=== PATIENT | female | born 1980 | race Caucasian/White ===

== ENCOUNTER → 2016-07-12 | Outpatient (CLI) | payer BC, OTHER | LOC: MW.CHGS 14:02 | PROVIDERS: ATTEND Surgery | DX: N63 Unspecified lump in breast (principal) | CPT/HCPCS: 36415; 85027; 85610; 85730 ==

== ENCOUNTER 2017-03-27 00:44 | Emergency (ER) | payer BC ==
[2017-03-27 00:53] VITALS: BP 153/99
[2017-03-27] MEDS ORDERED: Aspirin 81 MG Tab.Chew PO ONE (00:57)
[2017-03-27] MEDS ORDERED: Nitroglycerin 2% Oint 1 GM UD Packet TOP SCH (01:00)
--- NOTE | 2017-03-27 01:12 | EDM.PDOC ---
ED HPI GENERAL MEDICAL PROBLEM - General Chief Complaint: Chest Pain Stated Complaint: CHEST PAIN, BACK PAIN Time Seen by Provider: 03/27/17 00:50 Source of Information: Reports: Patient - History of Present Illness INITIAL COMMENTS - FREE TEXT/NARRATIVE: She states that she had onset of central chest pain x about three hours ago. she has been coughing a little more since she quit smoking about a month ago. Middle Chest Pain Score (Numeric/FACES): 5 Upper Back Pain Score (Numeric/FACES): 5 - Related Data Allergies Allergy/AdvReac Type Severity Reaction Status Date / Time No Known Allergies Allergy Verified 11/22/15 15:14 Home Meds: Home Meds Venlafaxine [Effexor] 150 mg PO DAILY 05/06/14 [History] Lisinopril [Lisinopril] 10 mg PO DAILY 03/27/17 [History] Sertraline [Zoloft] 50 mg PO DAILY 03/27/17 [History] Past Medical History HEENT History: Reports: None Cardiovascular History: Reports: Hypertension Respiratory History: Reports: None Gastrointestinal History: Reports: None Genitourinary History: Reports: None [employer] History: Reports: None Musculoskeletal History: Reports: None Neurological History: Reports: None Psychiatric History: Reports: Addiction, Depression, Other (See Below) Other Psychiatric History: ETOH abuse Endocrine/Metabolic History: Reports: None Hematologic History: Reports: None Immunologic History: Reports: None Oncologic (Cancer) History: Reports: None Dermatologic History: Reports: None - Infectious Disease History Infectious Disease History: Reports: Chicken Pox - Past Surgical History Head Surgeries/Procedures: Reports: None Social & Family History - Family History Family Medical History: Noncontributory - Tobacco Use Smoking Status *Q: Former Smoker Years of Tobacco use: 15 Packs/Tins Daily: 0.5 Used Tobacco, but Quit: Yes Month Tobacco Last Used: 02/2017 - Caffeine Use Caffeine Use: Reports: Soda - Alcohol Use Days Per Week of Alcohol Use: 0 Number of Drinks Per Day: 4 Total Drinks Per Week: 0 - Recreational Drug Use Recreational Drug Use: No ED ROS GENERAL - Review of Systems Review Of Systems: See Below Constitutional: Denies: Fever Respiratory: Reports: Cough, Sputum Cardiovascular: Reports: Chest Pain GI/Abdominal: Denies: Abdominal Pain, Black Stool, Bloody Stool, Hematemesis, Hematochezia ED EXAM, GENERAL - Physical Exam Exam: See Below Free Text/Narrative:: alert normal mentation lungs CTA heart RRR without m abdomen non tender no ankle edema EKG: NSR ; small q waves II III AVF and V4 through V 6 Course - Vital Signs Last Recorded V/S: Last Vital Signs Temp 97.4 F 03/27/17 00:49 Pulse 104 H 03/27/17 00:49 Resp 20 03/27/17 00:49 BP 153/99 H 03/27/17 00:49 Pulse Ox 98 03/27/17 00:49 - Orders/Labs/Meds Orders: Active Orders 24 hr Category Date Time Status Patient Status [ADT] Routine ADT 03/27/17 02:59 Active Cardiac Monitoring [RC] . DIRECTED Care 03/27/17 00:58 Active EKG 12 Lead [EKG Documentation Completion] [RC] STAT Care 03/27/17 00:55 Active Oxygen Therapy [RC] PRN Care 03/27/17 02:59 Active VTE/DVT Education [RC] PER UNIT ROUTINE Care 03/27/17 02:59 Active Vital Signs [RC] Q4H Care 03/27/17 02:59 Active Regular Diet [DIET] Diet 03/27/17 Breakfast Active Chest 1V Frontal [CR] Stat Exams 03/27/17 00:55 Taken LIPID PANEL [CHEM] Stat Lab 03/27/17 05:00 Ordered TROPONIN I [CHEM] Q6H Lab 03/27/17 05:00 Ordered Acetaminophen [Tylenol] Med 03/27/17 02:59 Active 650 mg PO Q4H PRN Lisinopril [Prinivil] Med 03/27/17 09:00 Active 10 mg PO DAILY Morphine Med 03/27/17 02:59 Active 2 mg IVPUSH Q2H PRN Nitroglycerin [Nitro-Bid 2%] Med 03/27/17 01:00 Active 1 gm TOP Q6H Sertraline [Zoloft] Med 03/27/17 09:00 Active 50 mg PO DAILY Sodium Chloride 0.9% [Saline Flush] Med 03/27/17 02:59 Active 10 ml FLUSH ASDIRECTED PRN Sodium Chloride 0.9% [Saline Flush] Med 03/27/17 02:59 Active 2.5 ml FLUSH ASDIRECTED PRN Temazepam [Restoril] Med 03/27/17 02:59 Active 15 mg PO BEDTIME PRN Saline Lock Insert [OM.PC] Routine Oth 03/27/17 02:59 Ordered Resuscitation Status Routine Resus Stat 03/27/17 02:59 Ordered Medication Orders Acetaminophen (Tylenol) 650 mg PO Q4H PRN PRN Reason: Pain (Mild 1-3)/fever Lisinopril (Prinivil) 10 mg PO DAILY BRUCE Morphine Sulfate (Morphine) 2 mg IVPUSH Q2H PRN PRN Reason: Pain (severe 7-10) Stop: 03/28/17 03:01 Nitroglycerin (Nitro-Bid 2%) 1 gm TOP Q6H BRUCE Last Admin: 03/27/17 01:07 Dose: 1 gm Sertraline HCl (Zoloft) 50 mg PO DAILY BRUCE Sodium Chloride (Saline Flush) 10 ml FLUSH ASDIRECTED PRN PRN Reason: Keep Vein Open Sodium Chloride (Saline Flush) 2.5 ml FLUSH ASDIRECTED PRN PRN Reason: Keep Vein Open Temazepam (Restoril) 15 mg PO BEDTIME PRN PRN Reason: Sleep Labs: Laboratory Tests 03/27/17 03/27/17 03/27/17 Range/Units 01:00 01:00 01:00 WBC 11.67 H (4.0-11.0) K/uL RBC 4.73 (4.30-5.90) M/uL Hgb 13.2 (12.0-16.0) g/dL Hct 39.1 (36.0-46.0) % MCV 82.7 (80.0-98.0) fL MCH 27.9 (27.0-32.0) pg MCHC 33.8 (31.0-37.0) g/dL RDW Std Deviation 40.0 (28.0-62.0) fl RDW Coeff of Roe 14 (11.0-15.0) % Plt Count 324 (150-400) K/uL MPV 10.00 (7.40-12.00) fL Neut % (Auto) 57.9 (48.0-80.0) % Lymph % (Auto) 31.0 (16.0-40.0) % [place] % (Auto) 8.4 (0.0-15.0) % Eos % (Auto) 2.4 (0.0-7.0) % Baso % (Auto) 0.3 (0.0-1.5) % Neut # (Auto) 6.8 H (1.4-5.7) K/uL Lymph # (Auto) 3.6 H (0.6-2.4) K/uL [place] # (Auto) 1.0 H (0.0-0.8) K/uL Eos # (Auto) 0.3 (0.0-0.7) K/uL Baso # (Auto) 0.0 (0.0-0.1) K/uL Sodium 138 (136-146) mmol/L Potassium 3.9 (3.5-5.1) mmol/L Chloride 106 (98-110) mmol/L Carbon Dioxide 24 (21-31) mmol/L BUN 12 (6.0-23.0) mg/dL Creatinine 0.7 (0.6-1.5) mg/dL Est Cr Clr Drug Dosing 103.01 mL/min Estimated GFR (MDRD) > 60.0 ml/min Glucose 116 H (60-110) mg/dL Calcium 9.3 (8.8-10.8) mg/dL Magnesium 1.6 (1.5-2.3) mEq/L Total Bilirubin 0.2 (0.1-1.5) mg/dL AST 17 (5-40) IU/L ALT 24 (8-54) IU/L Alkaline Phosphatase 105 (40-150) Troponin I < 0.10 (0.0-0.29) NG/ML Total Protein 7.5 (6.0-8.0) g/dL Albumin 4.0 (3.5-5.0) g/dL Globulin 3.5 (2.0-3.5) g/dL Albumin/Globulin Ratio 1.1 L (1.3-2.8) HCG, Qual NEGATIVE (NEG) Meds: Medications Generic Name Dose Route Start Last Admin Trade Name Freq PRN Reason Stop Dose Admin Acetaminophen 650 mg 03/27/17 02:59 Tylenol PO Q4H PRN Pain (Mild 1-3)/fever Lisinopril 10 mg 03/27/17 09:00 Prinivil PO DAILY BRUCE Morphine Sulfate 2 mg 03/27/17 02:59 Morphine IVPUSH 1113/17 03:01 Q2H PRN Pain (severe 7-10) Nitroglycerin 1 gm 03/27/17 01:00 03/27/17 01:07 Nitro-Bid 2% TOP 1 gm Q6H BRUCE Administration Sertraline HCl 50 mg 03/27/17 09:00 Zoloft PO DAILY BRUCE Sodium Chloride 10 ml 03/27/17 02:59 Saline Flush FLUSH ASDIRECTED PRN Keep Vein Open Sodium Chloride 2.5 ml 03/27/17 02:59 Saline Flush FLUSH ASDIRECTED PRN Keep Vein Open Temazepam 15 mg 03/27/17 02:59 Restoril PO BEDTIME PRN Sleep Discontinued Medications Generic Name Dose Route Start Last Admin Trade Name Freq PRN Reason Stop Dose Admin Aspirin 324 mg 03/27/17 00:57 03/27/17 01:07 Aspirin PO 03/27/17 00:58 324 mg ONETIME ONE Administration - Re-Assessments/Exams Free Text/Narrative Re-Assessment/Exam: 03/27/17 02:58 i reviewed findings with patient and recommend observation; chest pain is atypical and likely non cardiac but 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 Jose eisenberg MD Free Text/Narrative Re-Assessment/Exam: 03/27/17 03:07 I recommended observation in the hospital but she insists on discharge understanding the risk of heart disease although I advised that this is likely musculoskeletal pain. She voices understanding. Departure - Departure Time of Disposition: 02:58 Disposition: Home, Self-Care 01 Condition: Good Clinical Impression: Chest pain Referrals: PCP,None [Primary Care Provider] - Forms: ED Department Discharge Additional Instructions: tylenol as needed for pain recheck with your doctor within one week. - My Orders Last 24 Hours: My Active Orders 03/27/17 00:55 EKG 12 Lead [EKG Documentation Completion] [RC] STAT Chest 1V Frontal [CR] Stat 03/27/17 00:58 Cardiac Monitoring [RC] . DIRECTED 03/27/17 01:00 Nitroglycerin [Nitro-Bid 2%] 1 gm TOP Q6H 03/27/17 02:59 Patient Status [ADT] Routine Oxygen Therapy [RC] PRN VTE/DVT Education [RC] PER UNIT ROUTINE Vital Signs [RC] Q4H Acetaminophen [Tylenol] 650 mg PO Q4H PRN Morphine 2 mg IVPUSH Q2H PRN Sodium Chloride 0.9% [Saline Flush] 10 ml FLUSH ASDIRECTED PRN Sodium Chloride 0.9% [Saline Flush] 2.5 ml FLUSH ASDIRECTED PRN Temazepam [Restoril] 15 mg PO BEDTIME PRN Saline Lock Insert [OM.PC] Routine Resuscitation Status Routine 03/27/17 05:00 LIPID PANEL [CHEM] Stat TROPONIN I [CHEM] Q6H 03/27/17 09:00 Lisinopril [Prinivil] 10 mg PO DAILY Sertraline [Zoloft] 50 mg PO DAILY 03/27/17 Breakfast Regular Diet [DIET] - Assessment/Plan Last 24 Hours: My Active Orders 03/27/17 00:55 EKG 12 Lead [EKG Documentation Completion] [RC] STAT Chest 1V Frontal [CR] Stat 03/27/17 00:58 Cardiac Monitoring [RC] . DIRECTED 03/27/17 01:00 Nitroglycerin [Nitro-Bid 2%] 1 gm TOP Q6H 03/27/17 02:59 Patient Status [ADT] Routine Oxygen Therapy [RC] PRN VTE/DVT Education [RC] PER UNIT ROUTINE Vital Signs [RC] Q4H Acetaminophen [Tylenol] 650 mg PO Q4H PRN Morphine 2 mg IVPUSH Q2H PRN Sodium Chloride 0.9% [Saline Flush] 10 ml FLUSH ASDIRECTED PRN Sodium Chloride 0.9% [Saline Flush] 2.5 ml FLUSH ASDIRECTED PRN Temazepam [Restoril] 15 mg PO BEDTIME PRN Saline Lock Insert [OM.PC] Routine Resuscitation Status Routine 03/27/17 05:00 LIPID PANEL [CHEM] Stat TROPONIN I [CHEM] Q6H 03/27/17 09:00 Lisinopril [Prinivil] 10 mg PO DAILY Sertraline [Zoloft] 50 mg PO DAILY 03/27/17 Breakfast Regular Diet [DIET]
[2017-03-27 01:25] LABS: CHLORIDE,CL 106 mmol/L (98-110); SODIUM,NA 138 mmol/L (136-146)
[2017-03-27] MEDS ORDERED: Morphine 10 MG/ML Syringe IVPUSH PRN (02:59)
[2017-03-27] MEDS ORDERED: Sodium Chloride 0.9% 2.5 ML Syringe FLUSH PRN (02:59)
[2017-03-27] MEDS ORDERED: Temazepam 15 MG Cap PO PRN (02:59)
[2017-03-27] MEDS ORDERED: Acetaminophen 325 MG Tab PO PRN (02:59)
[2017-03-27] MEDS ORDERED: Sodium Chloride 0.9% 10 ML Syringe FLUSH PRN (02:59)
[2017-03-27] MEDS ORDERED: Lisinopril 10 MG Tab PO SCH (09:00)
[2017-03-27] MEDS ORDERED: Sertraline 50 MG Tab PO SCH (09:00)
--- NOTE | 2017-03-28 14:20 | CR ---
EXAM DATE: 03/27/17 PATIENT'S AGE: 36 Patient: OKSANA CERRATO Facility: [place], [place] Site . Site : 1980 Study: XRay Chest [id number] 2:19:04 AM Ordering Physician: Alfonso Garcia Final Report: INDICATIONS: Chest pain. TECHNIQUE: Chest 1 view. COMPARISON: Chest radiograph May 06, 2014. FINDINGS: Lungs are suboptimally inflated but grossly clear. No evidence of pneumothorax or pleural effusion. Cardiac and mediastinal contours are within normal limits. Upper abdomen and osseous structures show no acute abnormality. IMPRESSION: No evidence of acute cardiopulmonary disease. Dictated by Jewel Singleton MD @ 03/27/2017 2:30:35 AM Dictated by: Jewel Singleton MD @ 03/27/2017 02:30:41 (Electronic Signature) Report Signed by Proxy. [facility] CENTERCorrina
== END 2017-03-27 03:30 | disposition home or self-care (01) ==
LOC: MW.ED 00:44
DX: R07.89 Other chest pain (principal); I10 Essential (primary) hypertension; Z79.899 Other long term (current) drug therapy; Z87.891 Personal history of nicotine dependence
CPT/HCPCS: 71010; 80053; 83735; 84484; 84703; 85025; 93005; 99285; A9270; 99283

== ENCOUNTER 2017-05-29 09:20 | Emergency (ER) | payer BC ==
[2017-05-29] MEDS ORDERED: Ondansetron 4 MG/2 ML SDV IVPUSH ONE (09:42)
[2017-05-29] MEDS ORDERED: Pantoprazole 40 MG Vial IVPUSH ONE (09:42)
[2017-05-29] MEDS ORDERED: Sodium Chloride 0.9% 1,000 ML IV ONE (09:42)
[2017-05-29 10:43] LABS: CHLORIDE,CL 85 mmol/L (98-110); SODIUM,NA 134 mmol/L (136-146)
[2017-05-29] MEDS ORDERED: NS + KCl 20mEq/L 1,000 ML IV SCH (12:00)
[2017-05-29] MEDS ORDERED: Promethazine 25 MG/ML SDV IM ONE (12:07)
--- NOTE | 2017-05-29 12:07 | EDM.PDOC ---
ED HPI GENERAL MEDICAL PROBLEM - General Chief Complaint: Drug or Alcohol Abuse Stated Complaint: VOMITTING, MUSCLE CRAMPS Time Seen by Provider: 05/29/17 12:07 Source of Information: Reports: Patient - History of Present Illness INITIAL COMMENTS - FREE TEXT/NARRATIVE: HISTORY AND PHYSICAL: History of present illness: [Patient with history of alcohol use abuse dependence was drinking over Tuesday night into Tuesday morning she drank several 40 ounce malt beverages along with 6-8 16 ounce beers and 5-8 shots of whiskey, she presents with vomiting since no fever chills sweats no chest pain shortness breath headache dizziness or palpitation no urine symptoms ] Review of systems: As per history of present illness and below otherwise all systems reviewed and negative. Past medical history: As per history of present illness and as reviewed below otherwise noncontributory. Surgical history: As per history of present illness and as reviewed below otherwise noncontributory. Social history: No reported history of drug or alcohol abuse. Family history: As per history of present illness and as reviewed below otherwise noncontributory. Physical exam: HEENT: Atraumatic, normocephalic, pupils reactive, negative for conjunctival pallor or scleral icterus, mucous membranes moist, throat clear, neck supple, nontender, trachea midline. Lungs: Clear to auscultation, breath sounds equal bilaterally, chest nontender. Heart: S1S2, regular, negative for clicks, rubs, or JVD. Abdomen: Soft, nondistended, nontender. Negative for masses or hepatosplenomegaly. Negative for costovertebral tenderness. Pelvis: Stable nontender. Genitourinary: Deferred. Rectal: Deferred. Extremities: Atraumatic, negative for cords or calf pain. Neurovascular unremarkable. Neuro: Awake, alert, oriented. Cranial nerves II through XII unremarkable. Cerebellum unremarkable. Motor and sensory unremarkable throughout. Exam nonfocal. Diagnostics: [CBC CMP alcohol hCG UA lactic acid CPK, CK-MB ] Abdomen flat and upright EKG Therapeutics: [1 L normal saline bolus Zofran 8 mg IV Protonic Aissatou milligrams IV Normal saline with 20 mEq of potassium Phenergan 25 mg IM ]Patient was considered for admission due to hypokalemia and dehydration she refuses and prefers to sign out AGAINST MEDICAL ADVICE, she is described possibility of permanent morbidity or mortality due to electrolyte abnormalities etc. she accepts these risks and voices understanding Provide Zofran protonic some potassium replacement she is extended the opportunity to return if symptoms persist or worsen Impression: [Gastritis vomiting-controlled Hypokalemia] Definitive disposition and diagnosis as appropriate pending reevaluation and review of above. - Related Data Allergies Allergy/AdvReac Type Severity Reaction Status Date / Time No Known Allergies Allergy Verified 05/29/17 09:28 Home Meds: Home Meds Venlafaxine [Effexor] 150 mg PO DAILY 05/06/14 [History] Lisinopril [Lisinopril] 10 mg PO DAILY 03/27/17 [History] Sertraline [Zoloft] 50 mg PO DAILY 03/27/17 [History] Past Medical History HEENT History: Reports: None Cardiovascular History: Reports: Hypertension Respiratory History: Reports: None Gastrointestinal History: Reports: None Genitourinary History: Reports: None [employer]IL [employer] History: Reports: None Musculoskeletal History: Reports: None Neurological History: Reports: None Psychiatric History: Reports: Addiction, Depression, Other (See Below) Other Psychiatric History: ETOH abuse Endocrine/Metabolic History: Reports: None Hematologic History: Reports: None Immunologic History: Reports: None Oncologic (Cancer) History: Reports: None Dermatologic History: Reports: None - Infectious Disease History Infectious Disease History: Reports: Chicken Pox - Past Surgical History Head Surgeries/Procedures: Reports: None Social & Family History - Family History Family Medical History: Noncontributory - Tobacco Use Smoking Status *Q: Never Smoker Years of Tobacco use: 15 Packs/Tins Daily: 0.5 Used Tobacco, but Quit: Yes Month Tobacco Last Used: 02/2017 - Caffeine Use Caffeine Use: Reports: Soda - Alcohol Use Days Per Week of Alcohol Use: 0 Number of Drinks Per Day: 4 Total Drinks Per Week: 0 - Recreational Drug Use Recreational Drug Use: No ED ROS GENERAL - Review of Systems Review Of Systems: ROS reveals no pertinent complaints other than HPI. ED EXAM, GENERAL - Physical Exam Exam: See Below Course - Vital Signs Last Recorded V/S: Last Vital Signs Temp 96.5 F 05/29/17 09:29 Pulse 101 H 05/29/17 09:29 Resp 20 05/29/17 09:29 BP 144/96 H 05/29/17 09:29 Pulse Ox 97 05/29/17 09:29 - Orders/Labs/Meds Orders: Active Orders 24 hr Category Date Time Status EKG Documentation Completion [RC] STAT Care 05/29/17 11:58 Active Abdomen 2V AP Flat Upright [CR] Stat Exams 05/29/17 10:08 Taken CULTURE BLOOD [BC] Stat Lab 05/29/17 11:47 Received CULTURE BLOOD [BC] Stat Lab 05/29/17 11:58 Received NS + KCl 20mEq/L [Normal Saline with 20 mEq KCl] 1,000 Med 05/29/17 12:00 Active ml IV ASDIRECTED Blood Culture x2 Reflex Set [OM.PC] Stat Oth 05/29/17 11:37 Ordered Medication Orders Potassium Chloride/Sodium Chloride (Normal Saline With 20 Meq Kcl) 1,000 mls @ 125 mls/hr IV ASDIRECTED BRUCE Last Admin: 05/29/17 12:12 Dose: 125 mls/hr Labs: Laboratory Tests 05/29/17 05/29/17 05/29/17 Range/Units 10:07 10:07 10:07 WBC 14.49 H (4.0-11.0) K/uL RBC 5.33 (4.30-5.90) M/uL Hgb 15.1 (12.0-16.0) g/dL Hct 43.4 (36.0-46.0) % MCV 81.4 (80.0-98.0) fL MCH 28.3 (27.0-32.0) pg MCHC 34.8 (31.0-37.0) g/dL RDW Std Deviation 40.8 (28.0-62.0) fl RDW Coeff of Roe 14 (11.0-15.0) % Plt Count 351 (150-400) K/uL MPV 9.80 (7.40-12.00) fL Neut % (Auto) 85.4 H (48.0-80.0) % Lymph % (Auto) 8.2 L (16.0-40.0) % [place] % (Auto) 6.3 (0.0-15.0) % Eos % (Auto) 0.0 (0.0-7.0) % Baso % (Auto) 0.1 (0.0-1.5) % Neut # (Auto) 12.4 H (1.4-5.7) K/uL Lymph # (Auto) 1.2 (0.6-2.4) K/uL [place] # (Auto) 0.9 H (0.0-0.8) K/uL Eos # (Auto) 0.0 (0.0-0.7) K/uL Baso # (Auto) 0.0 (0.0-0.1) K/uL Nucleated RBC % 0.0 /100WBC Nucleated RBCs # 0 K/uL Lactate 3.8 H (0.20-2.00) mmol/L Sodium 134 L (136-146) mmol/L Potassium 2.6 L (3.5-5.1) mmol/L Chloride 85 L (98-110) mmol/L Carbon Dioxide 27 (21-31) mmol/L BUN 16 (6.0-23.0) mg/dL Creatinine 1.0 (0.6-1.5) mg/dL Est Cr Clr Drug Dosing 72.11 mL/min Estimated GFR (MDRD) > 60.0 ml/min Glucose 127 H (60-110) mg/dL Calcium 9.6 (8.8-10.8) mg/dL Total Bilirubin 1.2 (0.1-1.5) mg/dL AST 18 (5-40) IU/L ALT 23 (8-54) IU/L Alkaline Phosphatase 119 (40-150) Creatine Kinase (9-236) IU/L CK-MB (CK-2) (0-6.6) ng/ml Troponin I (0.0-0.29) NG/ML Total Protein 8.5 H (6.0-8.0) g/dL Albumin 4.5 (3.5-5.0) g/dL Globulin 4.0 H (2.0-3.5) g/dL Albumin/Globulin Ratio 1.1 L (1.3-2.8) Urine Color Urine Appearance Urine pH (5.0-8.0) Ur Specific Reserve (1.001-1.035) Urine Protein (NEGATIVE) mg/dL Urine Glucose (UA) (NEGATIVE) mg/dL Urine Ketones (NEGATIVE) mg/dL Urine Occult Blood (NEGATIVE) Urine Nitrite (NEGATIVE) Urine Bilirubin (NEGATIVE) Urine Urobilinogen (<2.0) EU/dL Ur Leukocyte Esterase (NEGATIVE) Urine RBC (0-2/HPF) Urine WBC (0-5/HPF) Ur Epithelial Cells (NONE-FEW) Urine Bacteria (NEGATIVE) Urine HCG, Qual (NEGATIVE) Ethyl Alcohol < 10.0 mg/dL 05/29/17 05/29/17 05/29/17 Range/Units 10:59 10:59 11:58 WBC (4.0-11.0) K/uL RBC (4.30-5.90) M/uL Hgb (12.0-16.0) g/dL Hct (36.0-46.0) % MCV (80.0-98.0) fL MCH (27.0-32.0) pg MCHC (31.0-37.0) g/dL RDW Std Deviation (28.0-62.0) fl RDW Coeff of Roe (11.0-15.0) % Plt Count (150-400) K/uL MPV (7.40-12.00) fL Neut % (Auto) (48.0-80.0) % Lymph % (Auto) (16.0-40.0) % [place] % (Auto) (0.0-15.0) % Eos % (Auto) (0.0-7.0) % Baso % (Auto) (0.0-1.5) % Neut # (Auto) (1.4-5.7) K/uL Lymph # (Auto) (0.6-2.4) K/uL [place] # (Auto) (0.0-0.8) K/uL Eos # (Auto) (0.0-0.7) K/uL Baso # (Auto) (0.0-0.1) K/uL Nucleated RBC % /100WBC Nucleated RBCs # K/uL Lactate (0.20-2.00) mmol/L Sodium (136-146) mmol/L Potassium (3.5-5.1) mmol/L Chloride (98-110) mmol/L Carbon Dioxide (21-31) mmol/L BUN (6.0-23.0) mg/dL Creatinine (0.6-1.5) mg/dL Est Cr Clr Drug Dosing mL/min Estimated GFR (MDRD) ml/min Glucose (60-110) mg/dL Calcium (8.8-10.8) mg/dL Total Bilirubin (0.1-1.5) mg/dL AST (5-40) IU/L ALT (8-54) IU/L Alkaline Phosphatase (40-150) Creatine Kinase 245 H (9-236) IU/L CK-MB (CK-2) 4.1 (0-6.6) ng/ml Troponin I < 0.10 (0.0-0.29) NG/ML Total Protein (6.0-8.0) g/dL Albumin (3.5-5.0) g/dL Globulin (2.0-3.5) g/dL Albumin/Globulin Ratio (1.3-2.8) Urine Color YELLOW Urine Appearance CLEAR Urine pH 8.5 H (5.0-8.0) Ur Specific [place] 1.010 (1.001-1.035) Urine Protein 30 (NEGATIVE) mg/dL Urine Glucose (UA) NEGATIVE (NEGATIVE) mg/dL Urine Ketones 15 H (NEGATIVE) mg/dL Urine Occult Blood NEGATIVE (NEGATIVE) Urine Nitrite NEGATIVE (NEGATIVE) Urine Bilirubin SMALL H (NEGATIVE) Urine Urobilinogen 0.2 (<2.0) EU/dL Ur Leukocyte Esterase NEGATIVE (NEGATIVE) Urine RBC 2-4 (0-2/HPF) Urine WBC 1-3 (0-5/HPF) Ur Epithelial Cells FEW (NONE-FEW) Urine Bacteria FEW (NEGATIVE) Urine HCG, Qual NEGATIVE (NEGATIVE) Ethyl Alcohol mg/dL Meds: Medications Generic Name Dose Route Start Last Admin Trade Name Freq PRN Reason Stop Dose Admin Potassium Chloride/Sodium Chloride 1,000 mls @ 125 mls/hr 05/29/17 12:00 12:12 Normal Saline With 20 Meq Kcl IV 125 mls/hr ASDIRECTED BRUCE Administration Discontinued Medications Generic Name Dose Route Start Last Admin Trade Name Freq PRN Reason Stop Dose Admin Sodium Chloride 1,000 mls @ 999 mls/hr 05/29/17 09:42 05/29/17 10:03 Normal Saline IV 05/29/17 10:42 999 mls/hr STAT ONE Administration Ondansetron HCl 8 mg 05/29/17 09:42 05/29/17 10:05 Zofran IVPUSH 05/29/17 09:43 8 mg ONETIME ONE Administration Pantoprazole Sodium 80 mg 05/29/17 09:42 05/29/17 10:05 Protonix Iv IVPUSH 05/29/17 09:43 80 mg .BOLUS ONE Administration Promethazine HCl 25 mg 05/29/17 12:07 05/29/17 12:28 Phenergan IM 05/29/17 12:08 25 mg ONETIME ONE Administration Departure - Departure Time of Disposition: 12:57 Disposition: Against Medical Advice 07 Condition: Fair Clinical Impression: Dehydration, Hypokalemia, Alcohol abuse - Discharge Information Referrals: Estela Zamudio NP [Primary Care Provider] - Forms: ED Department Discharge Additional Instructions: The following information is given to patients seen in the emergency department who are being discharged to home. This information is to outline your options for follow-up care. We provide all patients seen in our emergency department with a follow-up referral. The need for follow-up, as well as the timing and circumstances, are variable depending upon the specifics of your emergency department visit. If you don't have a primary care physician on staff, we will provide you with a referral. We always advise you to contact your personal physician following an emergency department visit to inform them of the circumstance of the visit and for follow-up with them and/or the need for any referrals to a consulting specialist. The emergency department will also refer you to a specialist when appropriate. This referral assures that you have the opportunity for follow-up care with a specialist. All of these measure are taken in an effort to provide you with optimal care, which includes your follow-up. Under all circumstances we always encourage you to contact your private physician who remains a resource for coordinating your care. When calling for follow-up care, please make the office aware that this follow-up is from your recent emergency room visit. If for any reason you are refused follow-up, please contact the [facility] emergency department at and asked to speak to the emergency department charge nurse. - My Orders Last 24 Hours: My Active Orders 05/29/17 10:08 Abdomen 2V AP Flat Upright [CR] Stat 05/29/17 11:37 Blood Culture x2 Reflex Set [OM.PC] Stat 05/29/17 11:47 CULTURE BLOOD [BC] Stat 05/29/17 11:58 EKG Documentation Completion [RC] STAT CULTURE BLOOD [BC] Stat 05/29/17 12:00 NS + KCl 20mEq/L [Normal Saline with 20 mEq KCl] 1,000 ml IV ASDIRECTED - Assessment/Plan Last 24 Hours: My Active Orders 05/29/17 10:08 Abdomen 2V AP Flat Upright [CR] Stat 05/29/17 11:37 Blood Culture x2 Reflex Set [OM.PC] Stat 05/29/17 11:47 CULTURE BLOOD [BC] Stat 05/29/17 11:58 EKG Documentation Completion [RC] STAT CULTURE BLOOD [BC] Stat 05/29/17 12:00 NS + KCl 20mEq/L [Normal Saline with 20 mEq KCl] 1,000 ml IV ASDIRECTED
[2017-05-29 13:14] VITALS: BP 135/91
--- NOTE | 2017-05-30 19:18 | CR ---
EXAM DATE: 05/29/17 PATIENT'S AGE: 36 Patient: OKSANA CERRATO Facility: [place], [place] Site . Site : 1980 Study: XRay Abdomen [id number] 11:54:32 AM Ordering Physician: Antonia Soto Final Report: INDICATION: Pain. TECHNIQUE: Three views abdomen and pelvis. FINDINGS: No free intraperitoneal air. Bowel gas pattern is within normal limits. Moderate amounts stool in the colon. Arthritic changes involving the pubic symphysis and SI joints. Remainder negative. Dictated by Moreno Mauricio MD @ May 29 2017 12:14PM (Electronic Signature) Report Signed by Proxy. ARIELLE
== END 2017-05-29 13:15 | disposition left against medical advice (07) ==
LOC: MW.ED 09:20
DX: K29.70 Gastritis, unspecified, without bleeding (principal); E86.0 Dehydration; E87.6 Hypokalemia; F10.10 Alcohol abuse, uncomplicated; Y90.0 Blood alcohol level of less than 20 mg/100 ml; Z87.891 Personal history of nicotine dependence; I10 Essential (primary) hypertension; F32.9 Major depressive disorder, single episode, unspecified; Z79.899 Other long term (current) drug therapy
CPT/HCPCS: 36415; 74019; 80053; 81001; 81025; 82550; 82553; 83605; 84484; 85025; 87040; 93005; 96361; 96365; 96372; 96375; 99284; C9113; G0480; J2405; J2550; J3480; J7040; 99283

== ENCOUNTER 2017-06-02 17:48 | Emergency (ER) | payer BC ==
[2017-06-02] MEDS ORDERED: Ketorolac 30 MG/ML SDV IVPUSH ONE (18:10)
[2017-06-02] MEDS ORDERED: Ondansetron 4 MG/2 ML SDV IVPUSH ONE (18:10)
[2017-06-02] MEDS ORDERED: Sodium Chloride 0.9% 1,000 ML IV ONE (18:10)
--- NOTE | 2017-06-02 18:19 | EDM.PDOC ---
ED HPI GENERAL MEDICAL PROBLEM - General Chief Complaint: Flank Pain Stated Complaint: PT HAS BACK PAIN Time Seen by Provider: 06/02/17 18:09 Source of Information: Reports: Patient History Limitations: Reports: No Limitations - History of Present Illness INITIAL COMMENTS - FREE TEXT/NARRATIVE: HISTORY AND PHYSICAL: History of present illness: She is a 37-year-old female who presents to the emergency room today with complaints of right flank pain that wraps to her right lower abdomen. She states she does have some urgency and frequency with urination but no dysuria. No obvious blood noted in her urine. After she got off work she thought she may have been constipated so she proceeded to take a laxative, did have results of that but continued to have the abdominal pain. Pain is accompanied with nausea, no vomiting. Denies any chance of . Review of systems: As per history of present illness and below otherwise all systems reviewed and negative. Past medical history: As per history of present illness and as reviewed below otherwise noncontributory. Surgical history: As per history of present illness and as reviewed below otherwise noncontributory. Social history: No reported history of drug or alcohol abuse. Family history: As per history of present illness and as reviewed below otherwise noncontributory. Physical exam: Gen.: Well-developed and well-nourished 37-year-old female. Alert and oriented. Nontoxic and appears in no acute distress. HEENT: Atraumatic, normocephalic, pupils reactive, negative for conjunctival pallor or scleral icterus, mucous membranes moist, throat clear, neck supple, nontender, trachea midline. Lungs: Clear to auscultation, breath sounds equal bilaterally, chest nontender. Heart: S1S2, regular rate and rhythm Abdomen: Soft, nondistended, tenderness to the right upper and lower quadrants. Negative for masses or hepatosplenomegaly. Right-sided costovertebral tenderness. Pelvis: Stable nontender. Genitourinary: Deferred. Rectal: Deferred. Extremities: Atraumatic, negative for cords or calf pain. Neurovascular unremarkable. Neuro: Awake, alert, oriented. Cranial nerves II through XII unremarkable. Cerebellum unremarkable. Motor and sensory unremarkable throughout. Exam nonfocal. CT shows several gallstones in the gallbladder neck but no evidence of acute so cholecystitis or biliary dilation. No evidence of appendicitis or kidney stones. Currently has a WBC of 14. UA shows few bacteria, culture will be added. Discussed her results with the patient. And informed her if she continues to have pain to follow up with the general surgeon. We discussed dietary modifications. Patient voices understanding and is agreeable to plan of care. Denies any further questions at this time. Diagnostics: CBC, CMP, UA, hCG U, CT abdomen and pelvis Therapeutics: IV fluid, Zofran, Toradol Impression: Flank pain Gallstones Plan: 1. Ultram has been prescribed for pain. This medication may cause drowsiness so do not take it while driving or needing to be functioning at work. He may take Tylenol and/or ibuprofen as needed. 2. Zofran has also been given to you for nausea prevention. Take as directed. 3. [place] low-fat diet for the next couple days. Please monitor your food as you may notice some triggers. 4. Follow up with a general surgeon if you continued to have this abdominal pain. See her primary care provider in the next 1-2 days for follow-up. Return to the ED as needed and as discussed. Definitive disposition and diagnosis as appropriate pending reevaluation and review of above. 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 Musculoskeletal History: Reports: None Neurological History: Reports: None Psychiatric History: Reports: Addiction, Depression, Other (See Below) Other Psychiatric History: ETOH abuse Endocrine/Metabolic History: Reports: None Hematologic History: Reports: None Immunologic History: Reports: None Oncologic (Cancer) History: Reports: None Dermatologic History: Reports: None - Infectious Disease History Infectious Disease History: Reports: Chicken Pox - Past Surgical History Head Surgeries/Procedures: Reports: None Social & Family History - Family History Family Medical History: Noncontributory - Tobacco Use Smoking Status *Q: Former Smoker Years of Tobacco use: 15 Packs/Tins Daily: 0.5 Used Tobacco, but Quit: Yes Month Tobacco Last Used: 3 mo - Caffeine Use Caffeine Use: Reports: Soda - Alcohol Use Days Per Week of Alcohol Use: 1 Number of Drinks Per Day: 6 Total Drinks Per Week: 6 - Recreational Drug Use Recreational Drug Use: No ED ROS GENERAL - Review of Systems Review Of Systems: ROS reveals no pertinent complaints other than HPI. ED EXAM, RENAL/ - Physical Exam Exam: See Below (See dictation) Course - Vital Signs Last Recorded V/S: Last Vital Signs Temp 98.7 F 06/02/17 18:01 Pulse 94 06/02/17 18:01 Resp 18 06/02/17 18:01 BP 156/110 H 06/02/17 18:01 Pulse Ox 99 06/02/17 18:01 - Orders/Labs/Meds Orders: Active Orders 24 hr Category Date Time Status Abdomen Pelvis w Cont [CT] Stat Exams 06/02/17 18:10 Taken CULTURE URINE [RM] Stat Lab 06/02/17 18:04 Received Labs: Laboratory Tests 06/02/17 06/02/17 06/02/17 Range/Units 18:04 18:10 18:30 WBC 14.96 H (4.0-11.0) K/uL RBC 4.66 (4.30-5.90) M/uL Hgb 13.2 (12.0-16.0) g/dL Hct 38.6 (36.0-46.0) % MCV 82.8 (80.0-98.0) fL MCH 28.3 (27.0-32.0) pg MCHC 34.2 (31.0-37.0) g/dL RDW Std Deviation 40.9 (28.0-62.0) fl RDW Coeff of Roe 14 (11.0-15.0) % Plt Count 273 (150-400) K/uL MPV 10.00 (7.40-12.00) fL Neut % (Auto) 76.9 (48.0-80.0) % Lymph % (Auto) 16.6 (16.0-40.0) % [place] % (Auto) 5.4 (0.0-15.0) % Eos % (Auto) 0.8 (0.0-7.0) % Baso % (Auto) 0.3 (0.0-1.5) % Neut # (Auto) 11.5 H (1.4-5.7) K/uL Lymph # (Auto) 2.5 H (0.6-2.4) K/uL [place] # (Auto) 0.8 (0.0-0.8) K/uL Eos # (Auto) 0.1 (0.0-0.7) K/uL Baso # (Auto) 0.1 (0.0-0.1) K/uL Nucleated RBC % 0.0 /100WBC Nucleated RBCs # 0 K/uL Sodium (136-146) mmol/L Potassium (3.5-5.1) mmol/L Chloride (98-110) mmol/L Carbon Dioxide (21-31) mmol/L BUN (6.0-23.0) mg/dL Creatinine (0.6-1.5) mg/dL Est Cr Clr Drug Dosing mL/min Estimated GFR (MDRD) ml/min Glucose (60-110) mg/dL Calcium (8.8-10.8) mg/dL Total Bilirubin (0.1-1.5) mg/dL AST (5-40) IU/L ALT (8-54) IU/L Alkaline Phosphatase (40-150) Total Protein (6.0-8.0) g/dL Albumin (3.5-5.0) g/dL Globulin (2.0-3.5) g/dL Albumin/Globulin Ratio (1.3-2.8) Urine Color YELLOW Urine Appearance SLT CLOUDY Urine pH 7.5 (5.0-8.0) Ur Specific [place] 1.010 (1.001-1.035) Urine Protein NEGATIVE (NEGATIVE) mg/dL Urine Glucose (UA) 100 H (NEGATIVE) mg/dL Urine Ketones NEGATIVE (NEGATIVE) mg/dL Urine Occult Blood NEGATIVE (NEGATIVE) Urine Nitrite NEGATIVE (NEGATIVE) Urine Bilirubin NEGATIVE (NEGATIVE) Urine Urobilinogen 0.2 (<2.0) EU/dL Ur Leukocyte Esterase NEGATIVE (NEGATIVE) Urine RBC 0-1 (0-2/HPF) Urine WBC 0-1 (0-5/HPF) Ur Epithelial Cells MODERATE (NONE-FEW) Urine Bacteria FEW (NEGATIVE) Urine HCG, Qual NEGATIVE (NEGATIVE) 06/02/17 Range/Units 18:30 WBC (4.0-11.0) K/uL RBC (4.30-5.90) M/uL Hgb (12.0-16.0) g/dL Hct (36.0-46.0) % MCV (80.0-98.0) fL MCH (27.0-32.0) pg MCHC (31.0-37.0) g/dL RDW Std Deviation (28.0-62.0) fl RDW Coeff of Roe (11.0-15.0) % Plt Count (150-400) K/uL MPV (7.40-12.00) fL Neut % (Auto) (48.0-80.0) % Lymph % (Auto) (16.0-40.0) % [place] % (Auto) (0.0-15.0) % Eos % (Auto) (0.0-7.0) % Baso % (Auto) (0.0-1.5) % Neut # (Auto) (1.4-5.7) K/uL Lymph # (Auto) (0.6-2.4) K/uL [place] # (Auto) (0.0-0.8) K/uL Eos # (Auto) (0.0-0.7) K/uL Baso # (Auto) (0.0-0.1) K/uL Nucleated RBC % /100WBC Nucleated RBCs # K/uL Sodium 138 (136-146) mmol/L Potassium 3.6 (3.5-5.1) mmol/L Chloride 105 (98-110) mmol/L Carbon Dioxide 22 (21-31) mmol/L BUN 11 (6.0-23.0) mg/dL Creatinine 0.8 (0.6-1.5) mg/dL Est Cr Clr Drug Dosing 89.26 mL/min Estimated GFR (MDRD) > 60.0 ml/min Glucose 101 (60-110) mg/dL Calcium 9.1 (8.8-10.8) mg/dL Total Bilirubin 0.3 (0.1-1.5) mg/dL AST 18 (5-40) IU/L ALT 23 (8-54) IU/L Alkaline Phosphatase 87 (40-150) Total Protein 7.3 (6.0-8.0) g/dL Albumin 4.0 (3.5-5.0) g/dL Globulin 3.3 (2.0-3.5) g/dL Albumin/Globulin Ratio 1.2 L (1.3-2.8) Urine Color Urine Appearance Urine pH (5.0-8.0) Ur Specific [place] (1.001-1.035) Urine Protein (NEGATIVE) mg/dL Urine Glucose (UA) (NEGATIVE) mg/dL Urine Ketones (NEGATIVE) mg/dL Urine Occult Blood (NEGATIVE) Urine Nitrite (NEGATIVE) Urine Bilirubin (NEGATIVE) Urine Urobilinogen (<2.0) EU/dL Ur Leukocyte Esterase (NEGATIVE) Urine RBC (0-2/HPF) Urine WBC (0-5/HPF) Ur Epithelial Cells (NONE-FEW) Urine Bacteria (NEGATIVE) Urine HCG, Qual (NEGATIVE) Meds: Medications Discontinued Medications Generic Name Dose Route Start Last Admin Trade Name Lenchoq PRN Reason Stop Dose Admin Sodium Chloride 1,000 mls @ 999 mls/hr 06/02/17 18:10 06/02/17 19:03 Normal Saline IV 06/02/17 19:10 999 mls/hr STAT ONE Administration Iopamidol 100 ml 06/02/17 18:29 06/02/17 18:30 Isovue Multipack-370 (76%) IVPUSH 06/02/17 18:30 100 ml ONETIME STA Administration Ketorolac Tromethamine 30 mg 06/02/17 18:10 06/02/17 19:04 Toradol IVPUSH 06/02/17 18:11 30 mg ONETIME ONE Administration Morphine Sulfate 4 mg 06/02/17 19:07 06/02/17 19:34 Morphine IVPUSH 06/02/17 19:08 4 mg ONETIME ONE Administration Ondansetron HCl 4 mg 06/02/17 18:10 06/02/17 19:04 Zofran IVPUSH 06/02/17 18:11 4 mg ONETIME ONE Administration Departure - Departure Time of Disposition: 20:43 Disposition: Home, Self-Care 01 Clinical Impression: Gallstones - Discharge Information Referrals: PCP,None [Primary Care Provider] - Forms: ED Department Discharge Additional Instructions: My general discharge The following information is given to patients seen in the emergency department who are being discharged to home. This information is to outline your options for follow-up care. We provide all patients seen in our emergency department with a follow-up referral. The need for follow-up, as well as the timing and circumstances, are variable depending upon the specifics of your emergency department visit. If you don't have a primary care physician on staff, we will provide you with a referral. We always advise you to contact your personal physician following an emergency department visit to inform them of the circumstance of the visit and for follow-up with them and/or the need for any referrals to a consulting specialist. The emergency department will also refer you to a specialist when appropriate. This referral assures that you have the opportunity for follow-up care with a specialist. All of these measure are taken in an effort to provide you with optimal care, which includes your follow-up. Under all circumstances we always encourage you to contact your private physician who remains a resource for coordinating your care. When calling for follow-up care, please make the office aware that this follow-up is from your recent emergency room visit. If for any reason you are refused follow-up, please contact the [facility] Emergency Department at and asked to speak to the emergency department charge nurse. [facility] [address] [place] [id number] [facility] Specialty [facility] - General Surgery Professional Building [address] [place] [address], [address] [place] [address] 1. Ultram has been prescribed for pain. This medication may cause drowsiness so do not take it while driving or needing to be functioning at work. He may take Tylenol and/or ibuprofen as needed. 2. Zofran has also been given to you for nausea prevention. Take as directed. 3. [place] low-fat diet for the next couple days. Please monitor your food as you may notice some triggers. 4. Follow up with a general surgeon if you continued to have this abdominal pain. See her primary care provider in the next 1-2 days for follow-up. Return to the ED as needed and as discussed. - My Orders Last 24 Hours: My Active Orders 06/02/17 18:04 CULTURE URINE [RM] Stat 06/02/17 18:10 Abdomen Pelvis w Cont [CT] Stat - Assessment/Plan Last 24 Hours: My Active Orders 06/02/17 18:04 CULTURE URINE [RM] Stat 06/02/17 18:10 Abdomen Pelvis w Cont [CT] Stat
[2017-06-02] MEDS ORDERED: Iopamidol 755 MG/ML 200 ML Multipack Bottle IVPUSH STA (18:29)
[2017-06-02 19:02] LABS: CHLORIDE,CL 105 mmol/L (98-110); SODIUM,NA 138 mmol/L (136-146)
[2017-06-02] MEDS ORDERED: Morphine 4 MG/ML Syringe IVPUSH ONE (19:07)
[2017-06-02 21:21] VITALS: BP 127/88
--- NOTE | 2017-06-03 13:42 | CT ---
EXAM DATE: 06/02/17 PATIENT'S AGE: 37 Patient: OKSANA CERRATO Facility: [place], [place] Site . Site : [id number] Study: CT Abdomen [id number]/18/2018 7:36:50 PM Ordering Physician: Doctor Alves Final Report: INDICATION: Right flank pain. Negative HCG test. TECHNIQUE: CT abdomen and pelvis acquired with i.v. 100 mL Isovue 370. Coronal and sagittal reformats were obtained. COMPARISON: None. 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 Lower chest: Imaged lung bases are clear. No free air. Inferior heart normal in size. No pericardial or pleural effusion. Liver: Unremarkable. Spleen: Unremarkable. Pancreas: Unremarkable. Gallbladder and bile ducts: Possible tiny gallstones near the gallbladder neck, series 301, image 42. No acute inflammatory changes in the gallbladder fossa. Bile ducts are normal in caliber. Kidneys: Unremarkable. No kidney or ureteral stones and no hydronephrosis seen. Adrenal glands: Unremarkable. GI tract: Unremarkable. The appendix is normal in appearance and size. Vascular: Unremarkable. Lymph nodes: Unremarkable. Miscellaneous: Unremarkable. No pneumoperitoneum is seen. No significant ascites is noted. Pelvic Organs: Unremarkable. Bones: Unremarkable for age. IMPRESSION: 1. No acute abnormality identified in the abdomen or pelvis. No free fluid or free air. No bowel obstruction. 2. Possible subtle gallstones near the gallbladder neck, indeterminate on CT imaging. Recommend targeted ultrasound evaluation to exclude cholelithiasis. No CT imaging evidence of acute cholecystitis or abnormal biliary dilatation. 3. Normal kidneys. No hydronephrosis. 4. Normal appendix. Dictated by Jose Olmstead MD @ 06/02/2017 8:17:23 PM Dictated by: Jose Olmstead MD @ 06/02/2017 20:18:06 (Electronic Signature) Report Signed by Proxy. [facility], [place]
== END 2017-06-02 21:25 | disposition home or self-care (01) ==
LOC: MW.ED 17:48
DX: K80.20 Calculus of gallbladder without cholecystitis without obstruction (principal); I10 Essential (primary) hypertension; F32.9 Major depressive disorder, single episode, unspecified; Z79.899 Other long term (current) drug therapy; Z87.891 Personal history of nicotine dependence
CPT/HCPCS: 36415; 74177; 80053; 81001; 81025; 85025; 87086; 96361; 96374; 96375; 99284; J1885; J2270; J2405; J7040; Q9967

== ENCOUNTER 2019-01-27 18:11 | Emergency (ER) | payer BC ==
[2019-01-27] MEDS ORDERED: Ibuprofen 600 MG Tab PO ONE (18:48)
[2019-01-27 18:49] VITALS: BP 139/88; PULSE 114
--- NOTE | 2019-01-27 18:52 | EDM.PDOC ---
ED HPI GENERAL MEDICAL PROBLEM - General Chief Complaint: Upper Extremity Injury/Pain Stated Complaint: PT HURT RT HAND Time Seen by Provider: 01/27/19 18:48 Source of Information: Reports: Patient History Limitations: Reports: No Limitations - History of Present Illness INITIAL COMMENTS - FREE TEXT/NARRATIVE: History of present illness: []Patient rushed right fingertips in a garage door suddenly 1 hour ago. She has no lacerations but bruising to the tips of her index, middle and Ring fingers. She denies any other injuries Review of systems: As per history of present illness and below otherwise all systems reviewed and negative. Past medical history: As per history of present illness and as reviewed below otherwise noncontributory. Surgical history: As per history of present illness and as reviewed below otherwise noncontributory. Social history: No reported history of drug or alcohol abuse. Family history: As per history of present illness and as reviewed below otherwise noncontributory. Physical exam: General: Well developed, well nourished in NAD HEENT: Atraumatic, normocephalic, pupils reactive, negative for conjunctival pallor or scleral icterus, mucous membranes moist, throat clear, neck supple, nontender, trachea midline. Lungs: Clear to auscultation, breath sounds equal bilaterally, chest nontender. Heart: S1S2, regular, negative for clicks, rubs, or JVD. Abdomen: NABS, Soft, nondistended, nontender. Negative for masses or hepatosplenomegaly. Negative for costovertebral tenderness. Pelvis: Stable nontender. Genitourinary: Deferred. Rectal: Deferred. Extremities: Right hand with purple ecchymosis to the right index middle and ring fingers volar pads are tense to palpation and tender to touch. No open lacerations or regions, negative for cords or calf pain. Neurovascular unremarkable. Neuro: Awake, alert, oriented. Cranial nerves II through XII unremarkable. Cerebellum unremarkable. Motor and sensory unremarkable throughout. Exam nonfocal. Skin:warm and dry Diagnostics: X-rays right hand-no fracture Therapeutics: motrin for pain ED Course: stable Impression: crush right hand finger tips Prescriptions: Tramadol Plan: Take meds as directed, follow up with your primary care physician, return to ER if symptoms worsen or change. Definitive disposition and diagnosis as appropriate pending reevaluation and review of above. 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 Musculoskeletal History: Reports: None Neurological History: Reports: None Psychiatric History: Reports: Addiction, Depression, Other (See Below) Other Psychiatric History: ETOH abuse Endocrine/Metabolic History: Reports: None Hematologic History: Reports: None Immunologic History: Reports: None Oncologic (Cancer) History: Reports: None Dermatologic History: Reports: None - Infectious Disease History Infectious Disease History: Reports: Chicken Pox - Past Surgical History Head Surgeries/Procedures: Reports: None Social & Family History - Family History Family Medical History: Noncontributory - Caffeine Use Caffeine Use: Reports: Soda Review of Systems - Review of Systems Review Of Systems: See Below ED EXAM, GENERAL - Physical Exam Exam: See Below Course - Vital Signs Last Recorded V/S: Last Vital Signs Temp 97.1 F 01/27/19 18:46 Pulse 114 H 01/27/19 18:46 Resp 18 01/27/19 18:46 BP 139/88 01/27/19 18:46 Pulse Ox 98 01/27/19 18:46 - Orders/Labs/Meds Orders: Active Orders 24 hr Category Date Time Status Hand Comp Min 3V Rt [CR] Stat Exams 01/27/19 18:48 Ordered Meds: Medications Discontinued Medications Generic Name Dose Route Start Last Admin Trade Name Freq PRN Reason Stop Dose Admin Ibuprofen 600 mg 01/27/19 18:48 Motrin PO 01/27/19 18:49 ONETIME ONE Departure - Departure Time of Disposition: 19:07 Disposition: Home, Self-Care 01 Condition: Good Clinical Impression: Crushing injury of right hand, initial encounter - Discharge Information *PRESCRIPTION DRUG MONITORING PROGRAM REVIEWED*: No *COPY OF PRESCRIPTION DRUG MONITORING REPORT IN PATIENT MODE: No Referrals: Estela Zamudio NP [Primary Care Provider] - Forms: ED Department Discharge Additional Instructions: The following information is given to patients seen in the emergency department who are being discharged to home. This information is to outline your options for follow-up care. We provide all patients seen in our emergency department with a follow-up referral. The need for follow-up, as well as the timing and circumstances, are variable depending upon the specifics of your emergency department visit. If you don't have a primary care physician on staff, we will provide you with a referral. We always advise you to contact your personal physician following an emergency department visit to inform them of the circumstance of the visit and for follow-up with them and/or the need for any referrals to a consulting specialist. The emergency department will also refer you to a specialist when appropriate. This referral assures that you have the opportunity for follow-up care with a specialist. All of these measure are taken in an effort to provide you with optimal care, which includes your follow-up. Under all circumstances we always encourage you to contact your private physician who remains a resource for coordinating your care. When calling for follow-up care, please make the office aware that this follow-up is from your recent emergency room visit. If for any reason you are refused follow-up, please contact the [facility] Emergency Department at and asked to speak to the emergency department charge nurse. Take meds as directed, follow up with your primary care physician, return to ER if symptoms worsen or change. [facility] [address] [place] [id number] - My Orders Last 24 Hours: My Active Orders 01/27/19 18:48 Hand Comp Min 3V Rt [CR] Stat - Assessment/Plan Last 24 Hours: My Active Orders 01/27/19 18:48 Hand Comp Min 3V Rt [CR] Stat
--- NOTE | 2019-01-27 19:35 | CR ---
INDICATION: Crushed fingers in garage door TECHNIQUE: Right hand three views COMPARISON: None FINDINGS AND IMPRESSION: There is cortical irregularity and a linear lucency at the right 3rd distal phalanx tuft, consistent with a nondisplaced fracture. Remainder of osseous structures are intact. Normal alignment. No significant soft tissue swelling. Dictated by Loly Avina MD @ 01/27/2019 7:33:02 PM Dictated by: Loly Avina MD @ 01/27/2019 19:33:09 (Electronically Signed)
== END 2019-01-27 19:20 | disposition home or self-care (01) ==
LOC: MW.ED 18:11
DX: S67.190A Crushing injury of right index finger, initial encounter (principal); S67.192A Crushing injury of right middle finger, initial encounter; S67.194A Crushing injury of right ring finger, initial encounter; S60.021A Contusion of right index finger without damage to nail, initial encounter; S60.031A Contusion of right middle finger without damage to nail, initial encounter; S60.041A Contusion of right ring finger without damage to nail, initial encounter; F41.9 Anxiety disorder, unspecified; F32.9 Major depressive disorder, single episode, unspecified; Z79.899 Other long term (current) drug therapy; W23.0XXA Caught, crushed, jammed, or pinched between moving objects, initial encounter
CPT/HCPCS: 73130-26-RT; 73130-RT; 99283-25

== ENCOUNTER 2020-01-06 15:04 | Observation (INO) | payer BC ==
[2020-01-06] MEDS ORDERED: Sodium Chloride 0.9% 10 ML Syringe FLUSH PRN (15:22)
[2020-01-06] MEDS ORDERED: Pantoprazole 40 MG in Sodium Chloride 0.9% 20 ML IVPUSH ONE (15:22)
[2020-01-06] MEDS ORDERED: Sodium Chloride 0.9% 2.5 ML Syringe FLUSH PRN (15:22)
[2020-01-06] MEDS ORDERED: Sodium Chloride 0.9% 1,000 ML IV ONE (15:22)
[2020-01-06] MEDS ORDERED: Ondansetron 4 MG/2 ML SDV IVPUSH ONE (15:22)
[2020-01-06] MEDS ORDERED: Sodium Chloride 0.9% 20 ML ONE (15:47)
[2020-01-06 16:10] LABS: BLOOD UREA NITROGEN,BUN 8 mg/dL (7.0-18.0); CARBON DIOXIDE,CO2 21.3 mmol/L (21.0-32.0); CHLORIDE,CL 107 mmol/L (98-107); GLUCOSE RANDOM 130 mg/dL (74-106); POTASSIUM,K 3.3 mmol/L (3.5-5.1); SODIUM,NA 141 mmol/L (136-145)
[2020-01-06] MEDS ORDERED: LORazepam 2 MG/ML SDV IVPUSH ONE (17:19)
[2020-01-06] MEDS ORDERED: chlordiazePOXIDE 25 MG Cap PO ONE (17:20)
--- NOTE | 2020-01-06 17:20 | EDM.PDOC ---
ED HPI GENERAL MEDICAL PROBLEM - General Chief Complaint: Gastrointestinal Problem Stated Complaint: BLOODY STOOL Time Seen by Provider: 01/06/20 15:08 - History of Present Illness INITIAL COMMENTS - FREE TEXT/NARRATIVE: History of present illness: [] Patient presents with concerns about bright red blood in her stools she has not had any symptoms of abdominal pain nausea or vomiting but she developed diarrhea today that had bright red blood in it alarmed her she denies any rectal pain there is been no fever chills she is not on any blood thinners she does admit to drinking alcohol daily she denies any shortness of breath l ightheadedness or other problems no blood thinners are involved and she has not been in any other way ill. Never happened before nothing seems to make it better or worse Review of systems: As per history of present illness and below otherwise all systems reviewed and negative. Past medical history: As per history of present illness and as reviewed below otherwise noncontributory. Surgical history: As per history of present illness and as reviewed below otherwise noncontributory. Social history: No reported history of drug or alcohol abuse. Family history: As per history of present illness and as reviewed below otherwise noncontributory. Physical exam: HEENT: Atraumatic, normocephalic, pupils reactive, negative for conjunctival pallor or scleral icterus, mucous membranes moist, throat clear, neck supple, nontender, trachea midline. Lungs: Clear to auscultation, breath sounds equal bilaterally, chest nontender. Heart: S1S2, regular, negative for clicks, rubs, or JVD. Abdomen: Soft, nondistended, nontender. Negative for masses or hepatosplenomegaly. Negative for costovertebral tenderness. Pelvis: Stable nontender. Genitourinary: Deferred. Rectal: Normal rectal exam in terms of tone no masses no evidence of hemorrhoid she does not access tenderness there is bright red blood on exam that is Hemoccult positive Extremities: Atraumatic, negative for cords or calf pain. Neurovascular unremarkable. Neuro: Awake, alert, oriented. Cranial nerves II through XII unremarkable. Cerebellum unremarkable. Motor and sensory unremarkable throughout. Exam nonfocal. Diagnostics: [] Therapeutics: [] Impression: Rectal bleeding [] Plan: Blood work Protonix fluids reassess the patient. [] Definitive disposition and diagnosis as appropriate pending reevaluation and review of above. - Related Data Allergies Allergy/AdvReac Type Severity Reaction Status Date / Time No Known Allergies Allergy Verified 01/06/20 15:16 Home Meds: Home Meds Venlafaxine [Effexor] 300 mg PO DAILY 05/06/14 [History] Lisinopril 10 mg PO DAILY 03/27/17 [History] traMADol HCl [Tramadol HCl] 50 mg PO Q6H PRN #20 tablet 01/27/19 [Rx] Past Medical History HEENT History: Reports: None Cardiovascular History: Reports: Hypertension Respiratory History: Reports: None Gastrointestinal History: Reports: None Genitourinary History: Reports: None IRRIGATOR History: Reports: None Musculoskeletal History: Reports: None Neurological History: Reports: None Other Neuro History: Erb's Palsy Psychiatric History: Reports: Addiction, Depression, Other (See Below) Other Psychiatric History: ETOH abuse Endocrine/Metabolic History: Reports: None Hematologic History: Reports: None Immunologic History: Reports: None Oncologic (Cancer) History: Reports: None Dermatologic History: Reports: None - Infectious Disease History Infectious Disease History: Reports: None - Past Surgical History Head Surgeries/Procedures: Reports: None HEENT Surgical History: Reports: None Cardiovascular Surgical History: Reports: None Respiratory Surgical History: Reports: None GI Surgical History: Reports: None Female Surgical History: Reports: None Endocrine Surgical History: Reports: None Neurological Surgical History: Reports: None Musculoskeletal Surgical History: Reports: None Oncologic Surgical History: Reports: None Dermatological Surgical History: Reports: None Social & Family History - Family History Family Medical History: Noncontributory - Tobacco Use Smoking Status *Q: Former Smoker Used Tobacco, but Quit: Yes Month/Year Tobacco Last Used: 2 years - Caffeine Use Caffeine Use: Reports: Soda - Recreational Drug Use Recreational Drug Use: No ED ROS GENERAL - Review of Systems Review Of Systems: See Below ED EXAM, GENERAL - Physical Exam Exam: See Below Course - Vital Signs Text/Narrative:: Patient's H&H is normal. She is persistently tachycardic however considering her daily drinking I gave her a milligram Ativan and 25 Librium this did not seem to bring her heart rate down ordered 2 L normal saline I reassessed her at 6:30 PM she still tachycardic no bloody stools in the ED no abdominal pain I discussed the case with Dr. Smiley the general surgeon at [phone] he will consult for GI bleeding I discussed case with Dr. Smiley at [phone] he will accept the patient for admission as the hospitalist. Last Recorded V/S: Last Vital Signs Temp 35.5 C L 01/06/20 15:16 Pulse 109 H 01/06/20 18:00 Resp 17 01/06/20 18:00 BP 113/74 01/06/20 18:00 Pulse Ox 97 01/06/20 18:00 - Orders/Labs/Meds Orders: Active Orders 24 hr Category Date Time Status Patient Status [ADT] Routine ADT 01/06/20 18:32 Ordered CORONAVIRUS COVID-19 PCR PHL Stat Lab 01/06/20 18:25 Ordered Sodium Chloride 0.9% [Normal Saline] 1,000 ml Med 01/06/20 17:52 Active IV STAT Sodium Chloride 0.9% [Saline Flush] Med 01/06/20 15:22 Active 10 ml FLUSH ASDIRECTED PRN Sodium Chloride 0.9% [Saline Flush] Med 01/06/20 15:22 Active 2.5 ml FLUSH ASDIRECTED PRN Saline Lock Insert [OM.PC] Stat Oth 01/06/20 15:22 Ordered Medication Orders Sodium Chloride (Normal Saline) 1,000 mls @ 999 mls/hr IV STAT STA Stop: 01/06/20 18:52 Last Admin: 01/06/20 18:00 Dose: 999 mls/hr Documented by: JULY Sodium Chloride (Saline Flush) 10 ml FLUSH ASDIRECTED PRN PRN Reason: Keep Vein Open Sodium Chloride (Saline Flush) 2.5 ml FLUSH ASDIRECTED PRN PRN Reason: Keep Vein Open Labs: Laboratory Tests 01/06/20 01/06/20 01/06/20 Range/Units 15:41 15:41 15:41 WBC 6.45 (4.0-11.0) K/uL RBC 4.92 (4.30-5.90) M/uL Hgb 14.2 (12.0-16.0) g/dL Hct 43.0 (36.0-46.0) % MCV 87.4 (80.0-98.0) fL MCH 28.9 (27.0-32.0) pg MCHC 33.0 (31.0-37.0) g/dL RDW Std Deviation 44.8 (28.0-62.0) fl RDW Coeff of Roe 14 (11.0-15.0) % Plt Count 298 (150-400) K/uL MPV 9.90 (7.40-12.00) fL Neut % (Auto) 41.4 L (48.0-80.0) % Lymph % (Auto) 47.4 H (16.0-40.0) % [place] % (Auto) 8.7 (0.0-15.0) % Eos % (Auto) 1.9 (0.0-7.0) % Baso % (Auto) 0.6 (0.0-1.5) % Neut # (Auto) 2.7 (1.4-5.7) K/uL Lymph # (Auto) 3.1 H (0.6-2.4) K/uL [place] # (Auto) 0.6 (0.0-0.8) K/uL Eos # (Auto) 0.1 (0.0-0.7) K/uL Baso # (Auto) 0.0 (0.0-0.1) K/uL Nucleated RBC % 0.0 /100WBC Nucleated RBCs # 0 K/uL INR 0.98 APTT 27.0 (18.6-31.3) SEC Sodium 141 (136-145) mmol/L Potassium 3.3 L (3.5-5.1) mmol/L Chloride 107 (98-107) mmol/L Carbon Dioxide 21.3 (21.0-32.0) mmol/L BUN 8 (7.0-18.0) mg/dL Creatinine 0.9 (0.6-1.0) mg/dL Est Cr Clr Drug Dosing 77.79 mL/min Estimated GFR (MDRD) > 60.0 ml/min Glucose 130 H (74-106) mg/dL Calcium 8.6 (8.5-10.1) mg/dL Total Bilirubin 0.1 L (0.2-1.0) mg/dL AST 22 (15-37) IU/L ALT 32 (14-63) IU/L Alkaline Phosphatase 96 (46-116) U/L Total Protein 7.7 (6.4-8.2) g/dL Albumin 3.7 (3.4-5.0) g/dL Globulin 4.0 (2.6-4.0) g/dL Albumin/Globulin Ratio 0.9 (0.9-1.6) Blood Type Antibody Screen 01/06/20 Range/Units 15:51 WBC (4.0-11.0) K/uL RBC (4.30-5.90) M/uL Hgb (12.0-16.0) g/dL Hct (36.0-46.0) % MCV (80.0-98.0) fL MCH (27.0-32.0) pg MCHC (31.0-37.0) g/dL RDW Std Deviation (28.0-62.0) fl RDW Coeff of Roe (11.0-15.0) % Plt Count (150-400) K/uL MPV (7.40-12.00) fL Neut % (Auto) (48.0-80.0) % Lymph % (Auto) (16.0-40.0) % [place] % (Auto) (0.0-15.0) % Eos % (Auto) (0.0-7.0) % Baso % (Auto) (0.0-1.5) % Neut # (Auto) (1.4-5.7) K/uL Lymph # (Auto) (0.6-2.4) K/uL [place] # (Auto) (0.0-0.8) K/uL Eos # (Auto) (0.0-0.7) K/uL Baso # (Auto) (0.0-0.1) K/uL Nucleated RBC % /100WBC Nucleated RBCs # K/uL INR APTT (18.6-31.3) SEC Sodium (136-145) mmol/L Potassium (3.5-5.1) mmol/L Chloride (98-107) mmol/L Carbon Dioxide (21.0-32.0) mmol/L BUN (7.0-18.0) mg/dL Creatinine (0.6-1.0) mg/dL Est Cr Clr Drug Dosing mL/min Estimated GFR (MDRD) ml/min Glucose (74-106) mg/dL Calcium (8.5-10.1) mg/dL Total Bilirubin (0.2-1.0) mg/dL AST (15-37) IU/L ALT (14-63) IU/L Alkaline Phosphatase (46-116) U/L Total Protein (6.4-8.2) g/dL Albumin (3.4-5.0) g/dL Globulin (2.6-4.0) g/dL Albumin/Globulin Ratio (0.9-1.6) Blood Type O NEGATIVE Antibody Screen NEGATIVE Meds: Medications Generic Name Dose Route Start Last Admin Trade Name Freq PRN Reason Stop Dose Admin Sodium Chloride 1,000 mls @ 999 mls/hr 01/06/20 17:52 01/06/20 18:00 Normal Saline IV 01/06/20 18:52 999 mls/hr STAT STA Administration Sodium Chloride 10 ml 01/06/20 15:22 Saline Flush FLUSH ASDIRECTED PRN Keep Vein Open Sodium Chloride 2.5 ml 01/06/20 15:22 Saline Flush FLUSH ASDIRECTED PRN Keep Vein Open Discontinued Medications Generic Name Dose Route Start Last Admin Trade Name Freq PRN Reason Stop Dose Admin Chlordiazepoxide HCl 25 mg 01/06/20 17:20 01/06/20 17:31 Librium PO 01/06/20 17:21 25 mg ONETIME ONE Administration Sodium Chloride 1,000 mls @ 999 mls/hr 01/06/20 15:22 01/06/20 15:45 Normal Saline IV 01/06/20 16:22 999 mls/hr .Bolus ONE Administration Pantoprazole Sodium 40 mg/ 20 mls @ 420 mls/hr 01/06/20 15:22 01/06/20 15:55 Sodium Chloride IVPUSH 01/06/20 15:24 420 mls/hr ONETIME ONE Administration Sodium Chloride Confirm 01/06/20 15:47 01/06/20 16:42 Normal Saline Administered 01/06/20 15:48 Not Given Dose 20 mls @ as directed .ROUTE .STK-MED ONE Lorazepam 1 mg 01/06/20 17:19 01/06/20 17:29 Ativan IVPUSH 01/06/20 17:20 1 mg ONETIME ONE Administration Ondansetron HCl 4 mg 01/06/20 15:22 01/06/20 15:52 Zofran IVPUSH 01/06/20 15:23 4 mg ONETIME ONE Administration Potassium Chloride 40 meq 01/06/20 18:28 Klor-Con M20 PO 01/06/20 18:29 ONETIME ONE Departure - Departure Time of Disposition: 18:34 Disposition: Refer to Observation Condition: Fair Clinical Impression: Bleeding, Diarrhea, Tachycardia - Discharge Information *PRESCRIPTION DRUG MONITORING PROGRAM REVIEWED*: Not Applicable *COPY OF PRESCRIPTION DRUG MONITORING REPORT IN PATIENT MODE: Not Applicable Referrals: Dina Alamo DO [Primary Care Provider] - Forms: ED Department Discharge Sepsis Event Note (ED) - Evaluation Sepsis Screening Result: No Definite Risk - Focused Exam Vital Signs: Vital Signs Temp Pulse Resp BP Pulse Ox 01/06/20 18:00 109 H 17 113/74 97 01/06/20 17:30 119 H 17 138/90 96 01/06/20 15:30 108 H 17 133/96 H 94 L 01/06/20 15:16 35.5 C L 132 H 18 129/99 H 97 - My Orders Last 24 Hours: My Active Orders 01/06/20 15:22 Sodium Chloride 0.9% [Saline Flush] 10 ml FLUSH ASDIRECTED PRN Sodium Chloride 0.9% [Saline Flush] 2.5 ml FLUSH ASDIRECTED PRN Saline Lock Insert [OM.PC] Stat 01/06/20 17:52 Sodium Chloride 0.9% [Normal Saline] 1,000 ml IV STAT 01/06/20 18:25 CORONAVIRUS COVID-19 PCR PHL Stat 01/06/20 18:32 Patient Status [ADT] Routine - Assessment/Plan Last 24 Hours: My Active Orders 01/06/20 15:22 Sodium Chloride 0.9% [Saline Flush] 10 ml FLUSH ASDIRECTED PRN Sodium Chloride 0.9% [Saline Flush] 2.5 ml FLUSH ASDIRECTED PRN Saline Lock Insert [OM.PC] Stat 01/06/20 17:52 Sodium Chloride 0.9% [Normal Saline] 1,000 ml IV STAT 01/06/20 18:25 CORONAVIRUS COVID-19 PCR PHL Stat 01/06/20 18:32 Patient Status [ADT] Routine
[2020-01-06] MEDS ORDERED: Sodium Chloride 0.9% 1,000 ML IV STA (17:52)
[2020-01-06] MEDS ORDERED: Potassium Chloride 20 MEQ Tab.ER PO ONE (18:28)
--- NOTE | 2020-01-06 19:43 | PCM.HP.2 ---
H&P History of Present Illness - General Date of Service: 01/06/20 Admit Problem/Dx: Admission Diagnosis/Problem Admission Diagnosis/Problem GI bleed not requiring more than 4 units of blood in 24 hours, ICU, or surgery - History of Present Illness Initial Comments - Free Text/Narative: 39 yo female with pmh of alcoholism, HTN and anxiety disorder who presents to the ED with bright red blood per rectum. Patient reports bloody stools since this morning. The blood is not in the stools and is present when she wipes and in the bowel. She has had three episodes this morning. She reports binge drinking on the weekends but does not drink much during the week. She denies and fevers or abdominal pain. - Related Data Allergies/Adverse Reactions: Allergies Allergy/AdvReac Type Severity Reaction Status Date / Time No Known Allergies Allergy Verified 01/08/20 14:54 Home Medications: Home Meds Venlafaxine [Effexor] 300 mg PO DAILY 05/06/14 [History] Lisinopril 10 mg PO DAILY 03/27/17 [History] traMADol HCl [Tramadol HCl] 50 mg PO Q6H PRN #20 tablet 01/27/19 [Rx] busPIRone [Buspar] 10 mg PO BID 01/06/20 [History] Pantoprazole Sodium [Protonix] 40 mg PO BID #28 tablet. 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 Musculoskeletal History: Reports: None Neurological History: Reports: None Other Neuro History: Erb's Palsy Psychiatric History: Reports: Addiction, Depression, Other (See Below) Other Psychiatric History: ETOH abuse Endocrine/Metabolic History: Reports: None Hematologic History: Reports: None Immunologic History: Reports: None Oncologic (Cancer) History: Reports: None Dermatologic History: Reports: None - Infectious Disease History Infectious Disease History: Reports: None - Past Surgical History Head Surgeries/Procedures: Reports: None HEENT Surgical History: Reports: None Cardiovascular Surgical History: Reports: None Respiratory Surgical History: Reports: None GI Surgical History: Reports: None Female Surgical History: Reports: None Endocrine Surgical History: Reports: None Neurological Surgical History: Reports: None Musculoskeletal Surgical History: Reports: None Oncologic Surgical History: Reports: None Dermatological Surgical History: Reports: None Social & Family History - Family History Family Medical History: Noncontributory - Tobacco Use Smoking Status *Q: Former Smoker Used Tobacco, but Quit: Yes Month/Year Tobacco Last Used: 2 years - Caffeine Use Caffeine Use: Reports: Soda - Recreational Drug Use Recreational Drug Use: No H&P Review of Systems - Review of Systems: Review Of Systems: Comprehensive ROS is negative, except as noted in HPI. Exam - Exam Exam: See Below - Vital Signs Vital Signs: Last Vital Signs Temp 35.5 C L 01/06/20 15:16 Pulse 132 H 01/06/20 19:00 Resp 18 01/06/20 19:00 BP 165/109 H 01/06/20 19:00 Pulse Ox 94 L 01/06/20 19:00 Weight: 113.398 kg - Exam General: Alert, Oriented Lungs: Clear to Auscultation, Normal Respiratory Effort Cardiovascular: Regular Rate, Regular Rhythm GI/Abdominal Exam: Normal Bowel Sounds, Soft, Non-Tender Extremities: Non-Tender, No Pedal Edema Skin: Warm, Dry, Intact Neurological: No: Focal Deficit - Patient Data Lab Results Last 24 hrs: Laboratory Results - last 24 hr 01/06/20 01/06/20 01/06/20 Range/Units 15:41 15:41 15:41 WBC 6.45 (4.0-11.0) K/uL RBC 4.92 (4.30-5.90) M/uL Hgb 14.2 (12.0-16.0) g/dL Hct 43.0 (36.0-46.0) % MCV 87.4 (80.0-98.0) fL MCH 28.9 (27.0-32.0) pg MCHC 33.0 (31.0-37.0) g/dL RDW Std Deviation 44.8 (28.0-62.0) fl RDW Coeff of Roe 14 (11.0-15.0) % Plt Count 298 (150-400) K/uL MPV 9.90 (7.40-12.00) fL Neut % (Auto) 41.4 L (48.0-80.0) % Lymph % (Auto) 47.4 H (16.0-40.0) % [place] % (Auto) 8.7 (0.0-15.0) % Eos % (Auto) 1.9 (0.0-7.0) % Baso % (Auto) 0.6 (0.0-1.5) % Neut # (Auto) 2.7 (1.4-5.7) K/uL Lymph # (Auto) 3.1 H (0.6-2.4) K/uL [place] # (Auto) 0.6 (0.0-0.8) K/uL Eos # (Auto) 0.1 (0.0-0.7) K/uL Baso # (Auto) 0.0 (0.0-0.1) K/uL Nucleated RBC % 0.0 /100WBC Nucleated RBCs # 0 K/uL INR 0.98 APTT 27.0 (18.6-31.3) SEC Sodium 141 (136-145) mmol/L Potassium 3.3 L (3.5-5.1) mmol/L Chloride 107 (98-107) mmol/L Carbon Dioxide 21.3 (21.0-32.0) mmol/L BUN 8 (7.0-18.0) mg/dL Creatinine 0.9 (0.6-1.0) mg/dL Est Cr Clr Drug Dosing 77.79 mL/min Estimated GFR (MDRD) > 60.0 ml/min Glucose 130 H (74-106) mg/dL Calcium 8.6 (8.5-10.1) mg/dL Total Bilirubin 0.1 L (0.2-1.0) mg/dL AST 22 (15-37) IU/L ALT 32 (14-63) IU/L Alkaline Phosphatase 96 (46-116) U/L Total Protein 7.7 (6.4-8.2) g/dL Albumin 3.7 (3.4-5.0) g/dL Globulin 4.0 (2.6-4.0) g/dL Albumin/Globulin Ratio 0.9 (0.9-1.6) COVID-19 (LETTY) (NEGATIVE) Blood Type Antibody Screen 01/06/20 01/06/20 Range/Units 15:51 18:55 WBC (4.0-11.0) K/uL RBC (4.30-5.90) M/uL Hgb (12.0-16.0) g/dL Hct (36.0-46.0) % MCV (80.0-98.0) fL MCH (27.0-32.0) pg MCHC (31.0-37.0) g/dL RDW Std Deviation (28.0-62.0) fl RDW Coeff of Roe (11.0-15.0) % Plt Count (150-400) K/uL MPV (7.40-12.00) fL Neut % (Auto) (48.0-80.0) % Lymph % (Auto) (16.0-40.0) % [place] % (Auto) (0.0-15.0) % Eos % (Auto) (0.0-7.0) % Baso % (Auto) (0.0-1.5) % Neut # (Auto) (1.4-5.7) K/uL Lymph # (Auto) (0.6-2.4) K/uL [place] # (Auto) (0.0-0.8) K/uL Eos # (Auto) (0.0-0.7) K/uL Baso # (Auto) (0.0-0.1) K/uL Nucleated RBC % /100WBC Nucleated RBCs # K/uL INR APTT (18.6-31.3) SEC Sodium (136-145) mmol/L Potassium (3.5-5.1) mmol/L Chloride (98-107) mmol/L Carbon Dioxide (21.0-32.0) mmol/L BUN (7.0-18.0) mg/dL Creatinine (0.6-1.0) mg/dL Est Cr Clr Drug Dosing mL/min Estimated GFR (MDRD) ml/min Glucose (74-106) mg/dL Calcium (8.5-10.1) mg/dL Total Bilirubin (0.2-1.0) mg/dL AST (15-37) IU/L ALT (14-63) IU/L Alkaline Phosphatase (46-116) U/L Total Protein (6.4-8.2) g/dL Albumin (3.4-5.0) g/dL Globulin (2.6-4.0) g/dL Albumin/Globulin Ratio (0.9-1.6) COVID-19 (LETTY) NEGATIVE (NEGATIVE) Blood Type O NEGATIVE Antibody Screen NEGATIVE Result Diagrams: 01/07/20 05:53 01/07/20 05:53 Sepsis Event Note - Evaluation Sepsis Screening Result: No Definite Risk - Focused Exam Vital Signs: Vital Signs Temp Pulse Resp BP Pulse Ox 01/06/20 19:00 132 H 18 165/109 H 94 L 01/06/20 18:30 112 H 18 124/79 94 L 01/06/20 18:00 109 H 17 113/74 97 01/06/20 17:30 119 H 17 138/90 96 01/06/20 15:30 108 H 17 133/96 H 94 L 01/06/20 15:16 35.5 C L 132 H 18 129/99 H 97 Problem List Initiated/Reviewed/Updated: Yes Orders Last 24hrs: Active Orders 24 hr Category Date Time Status Patient Status [ADT] Routine ADT 01/06/20 18:32 Active Antiembolic Devices [RC] PER UNIT ROUTINE Care 01/06/20 19:36 Ordered Oxygen Therapy [RC] PRN Care 01/06/20 19:35 Ordered Up ad Sarah [RC] ASDIRECTED Care 01/06/20 19:35 Ordered VTE/DVT Education [RC] PER UNIT ROUTINE Care 01/06/20 19:35 Ordered Vital Signs [RC] Q4H Care 01/06/20 19:35 Ordered Nothing per Oral Now Diet [DIET] Diet 01/06/20 Breakfast Ordered BASIC METABOLIC PANEL,BMP [CHEM] AM Lab 01/07/20 05:11 Ordered CBC W/O DIFF,HEMOGRAM [HEME] AM Lab 01/07/20 05:11 Ordered CBC WITH AUTO DIFF [HEME] Routine Lab 01/06/20 22:00 Ordered Sodium Chloride 0.9% @ 125 MLS/HR (1000ml) Med 01/06/20 19:45 Ordered Sodium Chloride 0.9% [Normal Saline] 1,000 ml IV ASDIRECTED Sodium Chloride 0.9% [Saline Flush] Med 01/06/20 15:22 Active 10 ml FLUSH ASDIRECTED PRN Sodium Chloride 0.9% [Saline Flush] Med 01/06/20 15:22 Active 2.5 ml FLUSH ASDIRECTED PRN Saline Lock Insert [OM.PC] Stat Oth 01/06/20 15:22 Ordered Sequential Compression Device [OM.PC] Per Unit Routine Oth 01/06/20 19:36 Ordered Resuscitation Status Routine Resus Stat 01/06/20 19:35 Ordered Medication Orders Sodium Chloride (Normal Saline) 1,000 mls @ 125 mls/hr IV ASDIRECTED BRUCE Sodium Chloride (Saline Flush) 10 ml FLUSH ASDIRECTED PRN PRN Reason: Keep Vein Open Sodium Chloride (Saline Flush) 2.5 ml FLUSH ASDIRECTED PRN PRN Reason: Keep Vein Open Assessment/Plan Comment:: 39 yo female admitted for suspected lower GI bleed. We will monitor overnight and trend hgb. Will consult general surgery regarding endoscopy. Will place on CIWAA protocol with thiamin and folic acid.
[2020-01-06] MEDS ORDERED: LORazepam 2 MG/ML SDV IVPUSH PRN (19:44)
[2020-01-06] MEDS: Folic Acid 50 MG/10 ML MDV IV SCH (20:17)
[2020-01-06] MEDS: Thiamine 200 MG/2 ML MDV IVPUSH SCH (20:18)
[2020-01-06] MEDS: Venlafaxine 75 MG Cap.ER PO SCH (20:52)
[2020-01-06] MEDS: busPIRone 5 MG Tab PO SCH (20:53)
[2020-01-06] MEDS: Sodium Chloride 0.9% 1,000 ML IV SCH (20:58)
[2020-01-07] MEDS: Pantoprazole 40 MG in Sodium Chloride 0.9% 10 ML IV SCH ×2 (02:48→14:48)
[2020-01-07] MEDS: Sodium Chloride 0.9% 1,000 ML IV SCH ×2 (05:22→13:01)
[2020-01-07 06:38] LABS: BLOOD UREA NITROGEN,BUN 7 mg/dL (7.0-18.0); CARBON DIOXIDE,CO2 22.6 mmol/L (21.0-32.0); CHLORIDE,CL 107 mmol/L (98-107); GLUCOSE RANDOM 94 mg/dL (74-106); POTASSIUM,K 4.2 mmol/L (3.5-5.1); SODIUM,NA 141 mmol/L (136-145)
--- NOTE | 2020-01-07 08:46 | CONS ---
DATE OF CONSULTATION: 01/06/2020 DATE OF : 1980 PRIMARY CARE PHYSICIAN: Dina Alamo DO HISTORY OF PRESENT ILLNESS: The patient is a pleasant 39-year-old female. She says this morning she noticed some blood in her stool. She says it was a streak of blood on the outside of the stool. She also had some blood on her toilet paper when she was wiping. She had 2 other bowel movements with mainly blood when she was wiping. She said her bowel movements got a little bit looser throughout the day. Her last bowel movement was at 2:00 p.m. this afternoon, so it has been about 9 hours since her last bowel movement. She denies any abdominal pain. She denies any blood in her stools in the past. She has never had a colonoscopy. She denies any nausea or vomiting. She denies any dark stools. She was admitted to the hospitalist service because of her tachycardia. General Surgery was consulted for possible endoscopy. PAST MEDICAL HISTORY: Anxiety, depression, hypertension. CURRENT HOME MEDICATIONS: 1. Buspar 10 mg p.o. b.i.d. 2. Effexor 300 mg p.o. daily. 3. Lisinopril 10 mg p.o. daily. She takes [id number] famotidine for her heartburn daily. ALLERGIES: No known drug allergies. PAST SURGICAL HISTORY: The patient denies any. PAST FAMILY HISTORY: 1. Mother had diabetes and lung cancer. 2. She says her father had issue with stomach ulcers. SOCIAL HISTORY: The patient quit smoking 2 years ago. The patient denies any illicit drug use. The patient states she does binge drink. She has a 12-pack of alcoholic seltzer water over the weekend, along with about 6 shooters of hard liquor. REVIEW OF SYSTEMS: As per HPI and GI, does have history of heartburn, controlled with her over-the- counter medication. PHYSICAL EXAMINATION: GENERAL: The patient is sitting comfortably on hospital bed. She is alert and oriented, in no acute distress. VITAL SIGNS: Temperature is 98.3, pulse is 112, blood pressure is 136/104, and saturating 94% on room air. HEAD: Normocephalic and atraumatic. LUNGS: Clear to auscultation bilaterally. No rhonchi or wheezing heard. HEART: Regular rhythm. No murmur appreciated, slight tachy. ABDOMEN: Soft, nontender, and nondistended. Does have a scar from old belly button ring. EXTREMITIES: Some slight bilateral edema at the ankles. NEUROLOGIC: Grossly no motor or neurologic deficits noted. RECTAL: Exam done with die maintenance technician in the room, no external hemorrhoid. Rectal exam had good tone. I do not feel any masses. Does not appear to have any blood currently in the rectal vault. LABORATORY DATA: White cell count is 6.4, hemoglobin is 14.2, platelet count is 298,000. INR is 0.98. Sodium 141, potassium 3.3, chloride 107, bicarbonate is 21.3, BUN 8, creatinine 0.9, glucose is 130. LFTs are within normal limits. COVID is negative. ASSESSMENT AND PLAN: This is a 39-year-old female who noticed some streak of blood in her stool and blood when she wiped her last 3 bowel movements today. Her last movement was about 9 hours ago. She has not had one since. She did not appear to have any external hemorrhoids, and on rectal exam, no blood in her rectal vault currently. I went over with the patient possible sources of GI bleed. She could have internal hemorrhoid or diverticular bleed or some polyp or lesion. Another source could be upper GI with gastritis or potentially stomach ulcer. I went over with the patient that currently she does not seem to be bleeding. I went over that if she has no more bloody stools, potentially she might be able to discharge with followup colonoscopy and upper endoscopy as an outpatient. If she continues to have bloody stool, then she will need the scopes during this hospitalization. The patient understands. I did go over the risks, goals, and alternatives to colonoscopy. Risk of colonoscopy included but are not limited to bleeding, infection, perforation, missed lesions. I went over that, if we see any polyps, we will try to remove them at that time if I am able to. I also went over the risks, goals, and alternatives of EGD. Risks included but are not limited to bleeding, perforation, missed lesions. I went over that, if we saw any lesions, we would biopsy at that time also on the upper endoscopy. The patient understands. Did answer all the patient's questions. It is okay for the patient to have ice chips and water, since we will not do any procedures this evening. She will be reevaluated in the morning. NARESH / JIA /[id number] MTDD
[2020-01-07] MEDS: busPIRone 5 MG Tab PO SCH (09:05)
[2020-01-07] MEDS: Venlafaxine 75 MG Cap.ER PO SCH (09:06)
[2020-01-07] MEDS: Folic Acid 50 MG/10 ML MDV IV SCH (09:07)
[2020-01-07] MEDS: Thiamine 200 MG/2 ML MDV IVPUSH SCH (09:08)
--- NOTE | 2020-01-07 13:43 | PN ---
SUBJECTIVE: I saw the patient this morning. She was in good spirits. She has no complaints. The patient states that she has not had any bowel movements since yesterday afternoon. She is feeling good. She denies any lightheadedness or dizziness. OBJECTIVE: VITAL SIGNS: Heart rate 108. Blood pressure 149/101. GENERAL: The patient is sitting comfortably on the hospital bed. She is alert and oriented. LABORATORY DATA: Hemoglobin 13. ASSESSMENT: Ms. Pena is a pleasant 39-year-old female who yesterday was admitted for tachycardia and GI bleed with blood mainly when she wiped, and little bit in her stool. She has had no bowel movements or signs of bleeding. Her hemoglobin did go down 1 g, from 14.2 to 13.0. She currently does not appear to have ongoing active bleeding. PLAN: I did go over with the patient that we should do colonoscopy, EGD, but would not be able to do that until tomorrow. Since she does not appear to be actively bleeding and she is feeling good, she could be discharged and have the procedures done as an outpatient in the next week or so. I did go over the risk of waiting, is that she could have reactivation of the bleed, which will require her to come back to the hospital. The patient understands. All her questions were answered. Currently, the patient is feeling good and would like to go home and get this scheduled as an outpatient. I did talk to my nurse who will call her and get this scheduled either early this week or next depending on the patient's schedule. All of the patient's questions were answered. We talked to the hospitalist, Dr. Smiley, about the plan as an outpatient upper and lower endoscopy. Again, I went over the risks, goals, and alternatives of both procedures, of the EGD and colonoscopy. Risks included, but no limited to bleeding, perforation, missed lesions, and failure to proceed with procedure. I also went over that we may not find an actual cause of her bleeding on either the upper and lower endoscopy, and the patient understands. I also went over that my nurse will call and go over the bowel prep, which is [id number]. The patient will need to have a sales driver to take her home after the procedure. The patient wished to be a full code for procedure. NARESH / JIA /[id number] ARIELLE
--- NOTE | 2020-01-07 14:56 | PCM.DCSUM1 ---
Discharge Summary - Hospital Course Brief History: 39 yo female with pmh of alcoholism, HTN and anxiety disorder who presents to the ED with bright red blood per rectum. Patient reports bloody stools since this morning. The blood is not in the stools and is present when she wipes and in the bowel. She has had three episodes this morning. She reports binge drinking on the weekends but does not drink much during the week. She denies and fevers or abdominal pain. Diagnosis: Stroke: No - Discharge Data Discharge Date: 01/07/20 Discharge Disposition: Home, Self-Care 01 Condition: Good - Referral to Home Health Primary Care Physician: Dina Alamo, DO - Patient Summary/Data Consults: Consultations 01/07/20 11:24 Consult to Physician [CONS] Routine Hospital Course: Admitting Diagnoses: Suspected lower GI bleed Discharge Diagnoses: Suspected lower GI bleed Other PMH: HTN alcohol abuse Zulay was admitted secondary to suspected lower GI bleed. She had small amount of bleeding per rectum at home. She was admitted, treated with bowel rest, Protonix and IVFs. Hgb remained stable, dipped to 13.0 from 14 on admission. She has had no further blood stools and is tolerating soft diet. Dr. Jerson Smiley, general surgery was consulted and evaluated the patient. He recommends colonoscopy. Rectal exam benign. She will be contacted by Dr Jerson Smiley's nurse to arrange outpatient colonosciopy, this week or next. She is eager for discharge home. She is stable and no alcohol withdrawal is noted. She was given Protonix BID for 14 days then return to taking Famotidine. She was counseled on sobriety, which she agreed was needed. She is to return to ED or clinic if concerns should arise, such as return of rectal bleeding. - Patient Instructions Diet: GI Soft/Low Residue/Low Fiber Activity: As Tolerated, No Strenuous Activities Showering/Bathing: May Shower Notify Provider of: Fever, Increased Pain, Swelling and Redness, Drainage, Nausea and/or Vomiting - Discharge Plan *PRESCRIPTION DRUG MONITORING PROGRAM REVIEWED*: Not Applicable *COPY OF PRESCRIPTION DRUG MONITORING REPORT IN PATIENT MODE: Not Applicable Prescriptions/Med Rec: Pantoprazole Sodium [Protonix] 40 mg PO BID #28 tablet.dr Mills Medications: Home Meds Venlafaxine [Effexor] 300 mg PO DAILY 12/22/14 [History] Lisinopril 10 mg PO DAILY 03/27/17 [History] traMADol HCl [Tramadol HCl] 50 mg PO Q6H PRN #20 tablet 01/27/19 [Rx] busPIRone [Buspar] 10 mg PO BID 01/06/20 [History] Pantoprazole Sodium [Protonix] 40 mg PO BID #28 tablet. 01/07/20 [Rx] Oxygen Therapy Mode: Room Air Patient Handouts: Gastrointestinal Bleeding, [id number], Pantoprazole tablets Referrals: Jerson Smiley MD [Physician] - 01/09/20 8:00 am (Please arrive 15 minutes early with your identification, insurance cards and your own facemask.) Dina Alamo DO [Primary Care Provider] - 01/14/20 10:30 am (Please arrive 15 minutes early with your identification, insurance cards and your own facemask.) - Discharge Summary/Plan Comment DC Time >30 min.: No - Patient Data Vitals - Most Recent: Last Vital Signs Temp 97.3 F 01/07/20 07:00 Pulse 108 H 01/07/20 07:00 Resp 18 01/07/20 07:00 BP 149/101 H 01/07/20 07:00 Pulse Ox 97 01/07/20 07:00 Weight - Most Recent: 113.398 kg I&O - Last 24 hours: Intake & Output 01/06/20 01/07/20 01/07/20 22:59 06:59 14:59 Output Total 800 Balance -800 Lab Results - Last 24 hrs: Laboratory Results - last 24 hr 01/06/20 01/06/20 01/06/20 Range/Units 15:41 15:41 15:41 WBC 6.45 (4.0-11.0) K/uL RBC 4.92 (4.30-5.90) M/uL Hgb 14.2 (12.0-16.0) g/dL Hct 43.0 (36.0-46.0) % MCV 87.4 (80.0-98.0) fL MCH 28.9 (27.0-32.0) pg MCHC 33.0 (31.0-37.0) g/dL RDW Std Deviation 44.8 (28.0-62.0) fl RDW Coeff of Roe 14 (11.0-15.0) % Plt Count 298 (150-400) K/uL MPV 9.90 (7.40-12.00) fL Neut % (Auto) 41.4 L (48.0-80.0) % Lymph % (Auto) 47.4 H (16.0-40.0) % [place] % (Auto) 8.7 (0.0-15.0) % Eos % (Auto) 1.9 (0.0-7.0) % Baso % (Auto) 0.6 (0.0-1.5) % Neut # (Auto) 2.7 (1.4-5.7) K/uL Lymph # (Auto) 3.1 H (0.6-2.4) K/uL [place] # (Auto) 0.6 (0.0-0.8) K/uL Eos # (Auto) 0.1 (0.0-0.7) K/uL Baso # (Auto) 0.0 (0.0-0.1) K/uL Nucleated RBC % 0.0 /100WBC Nucleated RBCs # 0 K/uL INR 0.98 APTT 27.0 (18.6-31.3) SEC Sodium 141 (136-145) mmol/L Potassium 3.3 L (3.5-5.1) mmol/L Chloride 107 (98-107) mmol/L Carbon Dioxide 21.3 (21.0-32.0) mmol/L BUN 8 (7.0-18.0) mg/dL Creatinine 0.9 (0.6-1.0) mg/dL Est Cr Clr Drug Dosing 77.79 mL/min Estimated GFR (MDRD) > 60.0 ml/min Glucose 130 H (74-106) mg/dL Calcium 8.6 (8.5-10.1) mg/dL Total Bilirubin 0.1 L (0.2-1.0) mg/dL AST 22 (15-37) IU/L ALT 32 (14-63) IU/L Alkaline Phosphatase 96 (46-116) U/L Total Protein 7.7 (6.4-8.2) g/dL Albumin 3.7 (3.4-5.0) g/dL Globulin 4.0 (2.6-4.0) g/dL Albumin/Globulin Ratio 0.9 (0.9-1.6) Urine Color Urine Appearance Urine pH (5.0-8.0) Ur Specific [place] (1.001-1.035) Urine Protein (NEGATIVE) mg/dL Urine Glucose (UA) (NEGATIVE) mg/dL Urine Ketones (NEGATIVE) mg/dL Urine Occult Blood (NEGATIVE) Urine Nitrite (NEGATIVE) Urine Bilirubin (NEGATIVE) Urine Urobilinogen (<2.0) EU/dL Ur Leukocyte Esterase (NEGATIVE) Urine RBC (0-2/HPF) Urine WBC (0-5/HPF) Ur Epithelial Cells (NONE-FEW) Calcium Oxalate Crystal (NEGATIVE) Urine Bacteria (NEGATIVE) Urine HCG, Qual (NEGATIVE) COVID-19 (LETTY) (NEGATIVE) Blood Type Antibody Screen 01/06/20 01/06/20 01/06/20 Range/Units 15:51 18:55 20:45 WBC (4.0-11.0) K/uL RBC (4.30-5.90) M/uL Hgb (12.0-16.0) g/dL Hct (36.0-46.0) % MCV (80.0-98.0) fL MCH (27.0-32.0) pg MCHC (31.0-37.0) g/dL RDW Std Deviation (28.0-62.0) fl RDW Coeff of Roe (11.0-15.0) % Plt Count (150-400) K/uL MPV (7.40-12.00) fL Neut % (Auto) (48.0-80.0) % Lymph % (Auto) (16.0-40.0) % [place] % (Auto) (0.0-15.0) % Eos % (Auto) (0.0-7.0) % Baso % (Auto) (0.0-1.5) % Neut # (Auto) (1.4-5.7) K/uL Lymph # (Auto) (0.6-2.4) K/uL [place] # (Auto) (0.0-0.8) K/uL Eos # (Auto) (0.0-0.7) K/uL Baso # (Auto) (0.0-0.1) K/uL Nucleated RBC % /100WBC Nucleated RBCs # K/uL INR APTT (18.6-31.3) SEC Sodium (136-145) mmol/L Potassium (3.5-5.1) mmol/L Chloride (98-107) mmol/L Carbon Dioxide (21.0-32.0) mmol/L BUN (7.0-18.0) mg/dL Creatinine (0.6-1.0) mg/dL Est Cr Clr Drug Dosing mL/min Estimated GFR (MDRD) ml/min Glucose (74-106) mg/dL Calcium (8.5-10.1) mg/dL Total Bilirubin (0.2-1.0) mg/dL AST (15-37) IU/L ALT (14-63) IU/L Alkaline Phosphatase (46-116) U/L Total Protein (6.4-8.2) g/dL Albumin (3.4-5.0) g/dL Globulin (2.6-4.0) g/dL Albumin/Globulin Ratio (0.9-1.6) Urine Color YELLOW Urine Appearance SLT CLOUDY Urine pH 5.5 (5.0-8.0) Ur Specific [place] >= 1.030 (1.001-1.035) Urine Protein NEGATIVE (NEGATIVE) mg/dL Urine Glucose (UA) 250 H (NEGATIVE) mg/dL Urine Ketones TRACE H (NEGATIVE) mg/dL Urine Occult Blood SMALL H (NEGATIVE) Urine Nitrite NEGATIVE (NEGATIVE) Urine Bilirubin NEGATIVE (NEGATIVE) Urine Urobilinogen 0.2 (<2.0) EU/dL Ur Leukocyte Esterase NEGATIVE (NEGATIVE) Urine RBC 1-3 (0-2/HPF) Urine WBC 0-2 (0-5/HPF) Ur Epithelial Cells FEW (NONE-FEW) Calcium Oxalate Crystal RARE (NEGATIVE) Urine Bacteria FEW (NEGATIVE) Urine HCG, Qual (NEGATIVE) COVID-19 (LETTY) NEGATIVE (NEGATIVE) Blood Type O NEGATIVE Antibody Screen NEGATIVE 01/06/20 01/06/20 01/07/20 Range/Units 20:45 22:06 05:53 WBC 5.93 6.35 (4.0-11.0) K/uL RBC 4.50 4.59 (4.30-5.90) M/uL Hgb 12.7 13.0 (12.0-16.0) g/dL Hct 39.8 40.7 (36.0-46.0) % MCV 88.4 88.7 (80.0-98.0) fL MCH 28.2 28.3 (27.0-32.0) pg MCHC 31.9 31.9 (31.0-37.0) g/dL RDW Std Deviation 46.0 45.6 (28.0-62.0) fl RDW Coeff of Roe 14 14 (11.0-15.0) % Plt Count 274 261 (150-400) K/uL MPV 9.90 10.10 (7.40-12.00) fL Neut % (Auto) 43.1 L (48.0-80.0) % Lymph % (Auto) 46.9 H (16.0-40.0) % [place] % (Auto) 7.8 (0.0-15.0) % Eos % (Auto) 1.7 (0.0-7.0) % Baso % (Auto) 0.5 (0.0-1.5) % Neut # (Auto) 2.6 (1.4-5.7) K/uL Lymph # (Auto) 2.8 H (0.6-2.4) K/uL [place] # (Auto) 0.5 (0.0-0.8) K/uL Eos # (Auto) 0.1 (0.0-0.7) K/uL Baso # (Auto) 0.0 (0.0-0.1) K/uL Nucleated RBC % 0.0 0.0 /100WBC Nucleated RBCs # 0 0 K/uL INR APTT (18.6-31.3) SEC Sodium (136-145) mmol/L Potassium (3.5-5.1) mmol/L Chloride (98-107) mmol/L Carbon Dioxide (21.0-32.0) mmol/L BUN (7.0-18.0) mg/dL Creatinine (0.6-1.0) mg/dL Est Cr Clr Drug Dosing mL/min Estimated GFR (MDRD) ml/min Glucose (74-106) mg/dL Calcium (8.5-10.1) mg/dL Total Bilirubin (0.2-1.0) mg/dL AST (15-37) IU/L ALT (14-63) IU/L Alkaline Phosphatase (46-116) U/L Total Protein (6.4-8.2) g/dL Albumin (3.4-5.0) g/dL Globulin (2.6-4.0) g/dL Albumin/Globulin Ratio (0.9-1.6) Urine Color Urine Appearance Urine pH (5.0-8.0) Ur Specific [place] (1.001-1.035) Urine Protein (NEGATIVE) mg/dL Urine Glucose (UA) (NEGATIVE) mg/dL Urine Ketones (NEGATIVE) mg/dL Urine Occult Blood (NEGATIVE) Urine Nitrite (NEGATIVE) Urine Bilirubin (NEGATIVE) Urine Urobilinogen (<2.0) EU/dL Ur Leukocyte Esterase (NEGATIVE) Urine RBC (0-2/HPF) Urine WBC (0-5/HPF) Ur Epithelial Cells (NONE-FEW) Calcium Oxalate Crystal (NEGATIVE) Urine Bacteria (NEGATIVE) Urine HCG, Qual NEGATIVE (NEGATIVE) COVID-19 (LETTY) (NEGATIVE) Blood Type Antibody Screen 01/07/20 Range/Units 05:53 WBC (4.0-11.0) K/uL RBC (4.30-5.90) M/uL Hgb (12.0-16.0) g/dL Hct (36.0-46.0) % MCV (80.0-98.0) fL MCH (27.0-32.0) pg MCHC (31.0-37.0) g/dL RDW Std Deviation (28.0-62.0) fl RDW Coeff of Roe (11.0-15.0) % Plt Count (150-400) K/uL MPV (7.40-12.00) fL Neut % (Auto) (48.0-80.0) % Lymph % (Auto) (16.0-40.0) % [place] % (Auto) (0.0-15.0) % Eos % (Auto) (0.0-7.0) % Baso % (Auto) (0.0-1.5) % Neut # (Auto) (1.4-5.7) K/uL Lymph # (Auto) (0.6-2.4) K/uL [place] # (Auto) (0.0-0.8) K/uL Eos # (Auto) (0.0-0.7) K/uL Baso # (Auto) (0.0-0.1) K/uL Nucleated RBC % /100WBC Nucleated RBCs # K/uL INR APTT (18.6-31.3) SEC Sodium 141 (136-145) mmol/L Potassium 4.2 (3.5-5.1) mmol/L Chloride 107 (98-107) mmol/L Carbon Dioxide 22.6 (21.0-32.0) mmol/L BUN 7 (7.0-18.0) mg/dL Creatinine 0.9 (0.6-1.0) mg/dL Est Cr Clr Drug Dosing 77.79 mL/min Estimated GFR (MDRD) > 60.0 ml/min Glucose 94 (74-106) mg/dL Calcium 8.0 L (8.5-10.1) mg/dL Total Bilirubin (0.2-1.0) mg/dL AST (15-37) IU/L ALT (14-63) IU/L Alkaline Phosphatase (46-116) U/L Total Protein (6.4-8.2) g/dL Albumin (3.4-5.0) g/dL Globulin (2.6-4.0) g/dL Albumin/Globulin Ratio (0.9-1.6) Urine Color Urine Appearance Urine pH (5.0-8.0) Ur Specific [place] (1.001-1.035) Urine Protein (NEGATIVE) mg/dL Urine Glucose (UA) (NEGATIVE) mg/dL Urine Ketones (NEGATIVE) mg/dL Urine Occult Blood (NEGATIVE) Urine Nitrite (NEGATIVE) Urine Bilirubin (NEGATIVE) Urine Urobilinogen (<2.0) EU/dL Ur Leukocyte Esterase (NEGATIVE) Urine RBC (0-2/HPF) Urine WBC (0-5/HPF) Ur Epithelial Cells (NONE-FEW) Calcium Oxalate Crystal (NEGATIVE) Urine Bacteria (NEGATIVE) Urine HCG, Qual (NEGATIVE) COVID-19 (LETTY) (NEGATIVE) Blood Type Antibody Screen Med Orders - Current: Current Medications Buspirone HCl (Buspar) 10 mg PO BID [facility] Last Admin: 01/07/20 09:05 Dose: 10 mg Documented by: Folic Acid (Folic Acid) 1 mg IV DAILY [facility] Last Admin: 01/07/20 09:07 Dose: 1 mg Documented by: Sodium Chloride (Normal Saline) 1,000 mls @ 125 mls/hr IV ASDIRECTED [facility] Last Admin: 01/07/20 13:01 Dose: 125 mls/hr Documented by: Pantoprazole Sodium 40 mg/ (Sodium Chloride) 10 mls @ 300 mls/hr IV Q12H [facility] Last Admin: 01/07/20 14:48 Dose: 300 mls/hr Documented by: Lorazepam (Ativan) 0 mg IVPUSH Q4H PRN; Protocol PRN Reason: CIWAA protocol Last Admin: 01/06/20 20:55 Dose: 1 mg Documented by: Sodium Chloride (Saline Flush) 2.5 ml FLUSH ASDIRECTED PRN PRN Reason: Keep Vein Open Thiamine HCl (Vitamin B-1) 100 mg IVPUSH DAILY [facility] Last Admin: 01/07/20 09:08 Dose: 100 mg Documented by: Venlafaxine HCl (Effexor Xr) 300 mg PO DAILY [facility] Last Admin: 01/07/20 09:06 Dose: 300 mg Documented by: Discontinued Medications Chlordiazepoxide HCl (Librium) 25 mg PO ONETIME ONE Stop: 01/06/20 17:21 Last Admin: 01/06/20 17:31 Dose: 25 mg Documented by: Sodium Chloride (Normal Saline) 1,000 mls @ 999 mls/hr IV .Bolus ONE Stop: 01/06/20 16:22 Last Admin: 01/06/20 15:45 Dose: 999 mls/hr Documented by: Pantoprazole Sodium 40 mg/ (Sodium Chloride) 20 mls @ 420 mls/hr IVPUSH ONETIME ONE Stop: 01/06/20 15:24 Last Admin: 01/06/20 15:55 Dose: 420 mls/hr Documented by: Sodium Chloride (Normal Saline) Confirm Administered Dose 20 mls @ as directed .ROUTE .STK-MED ONE Stop: 01/06/20 15:48 Last Admin: 01/06/20 16:42 Dose: Not Given Documented by: Sodium Chloride (Normal Saline) 1,000 mls @ 999 mls/hr IV STAT STA Stop: 01/06/20 18:52 Last Admin: 01/06/20 18:00 Dose: 999 mls/hr Documented by: Lorazepam (Ativan) 1 mg IVPUSH ONETIME ONE Stop: 01/06/20 17:20 Last Admin: 01/06/20 17:29 Dose: 1 mg Documented by: Ondansetron HCl (Zofran) 4 mg IVPUSH ONETIME ONE Stop: 01/06/20 15:23 Last Admin: 01/06/20 15:52 Dose: 4 mg Documented by: Potassium Chloride (Klor-Con M20) 40 meq PO ONETIME ONE Stop: 01/06/20 18:29 Last Admin: 01/06/20 18:51 Dose: 40 meq Documented by: Sodium Chloride (Saline Flush) 10 ml FLUSH ASDIRECTED PRN PRN Reason: Keep Vein Open - Exam General: Reports: Alert, Oriented, Cooperative, No Acute Distress Lungs: Reports: Clear to Auscultation, Normal Respiratory Effort Cardiovascular: Reports: Regular Rate, Regular Rhythm GI/Abdominal Exam: Normal Bowel Sounds, Soft, Non-Tender, No Organomegaly, No Mass Extremities: Normal Inspection, Normal Range of Motion, Non-Tender, No Pedal Edema Neurological: Reports: No New Focal Deficit Psy/Mental Status: Reports: Alert, Normal Affect, Normal Mood
[2020-01-07 15:36] VITALS: BP 146/93; PULSE 88
== END 2020-01-07 15:55 | disposition home or self-care (01) ==
LOC: MW.ED 15:04 → MW.MS 18:32
PROVIDERS: ADMIT Internal Medicine; ATTEND Internal Medicine
DX: K62.5 Hemorrhage of anus and rectum (principal); F10.20 Alcohol dependence, uncomplicated; I10 Essential (primary) hypertension; F32.9 Major depressive disorder, single episode, unspecified; R00.0 Tachycardia, unspecified; R19.7 Diarrhea, unspecified; F41.9 Anxiety disorder, unspecified; Z20.828 Contact with and (suspected) exposure to other viral communicable diseases; Z79.899 Other long term (current) drug therapy; Z87.891 Personal history of nicotine dependence
CPT/HCPCS: 36415; 80048; 80053; 81001; 81025; 85025; 85027; 85610; 85730; 86850; 86900; 86901; 87635; 93005; 96361; 96374; 96375; 96376; 99284; A9270; C9113; G0378; J2060; J2405; J3411; J7030; J7050; 99283; U0002

== ENCOUNTER 2020-01-10 09:50 | Day surgery (SDC) | payer BC ==
[~2020-01-10 09:50] MED LIST: Lidocaine 2% 5 ML SDV ONE; Midazolam 1 MG/ML 2 ML SDV ONE; Propofol 200 MG/20 ML SDV ONE; fentaNYL 100 MCG/2 ML SDV ONE
--- NOTE | 2020-01-10 10:40 | PCM.PREANE ---
Preanesthetic Assessment - Anesthesia/Transfusion/Family Hx Anesthesia History: No Prior Anesthesia Family History of Anesthesia Reaction: No Transfusion History: No Prior Transfusion(s) - Review of Systems General: No Symptoms Pulmonary: No Symptoms Cardiovascular: No Symptoms Neurological: No Symptoms Other: Reports: None - Physical Assessment NPO Status Date: 01/09/20 Height: 5 ft 6 in Weight: 111.13 kg ASA Class: 2 Mental Status: Alert & Oriented x3 Airway Class: Mallampati = 2 Dentition: Reports: Normal Dentition ROM/Head Extension: Full Lungs: Clear to Auscultation, Normal Respiratory Effort Cardiovascular: Regular Rate, Regular Rhythm - Lab Values: Laboratory Last Values Urine HCG, Qual NEGATIVE (NEGATIVE) 01/10/20 10:05 - Allergies Allergies/Adverse Reactions: Allergies Allergy/AdvReac Type Severity Reaction Status Date / Time No Known Allergies Allergy Verified 01/09/20 09:18 - Blood Blood Available: No - Anesthesia Plan Pre-Op Medication Ordered: None - Acknowledgements Anesthesia Type Planned: General Anesthesia (tiva) Pt an Appropriate Candidate for the Planned Anesthesia: Yes Alternatives and Risks of Anesthesia Discussed w Pt/Guardian: Yes Pt/Guardian Understands and Agrees with Anesthesia Plan: Yes Additional Comments: PMH: htn, recent hematochesia PLAN:tiva PreAnesthesia Questionnaire HEENT History: Reports: Other (See Below) Other HEENT History: wears glasses/contacts Cardiovascular History: Reports: Hypertension Respiratory History: Reports: None Gastrointestinal History: Reports: GERD Genitourinary History: Reports: None [employer] History: Reports: None Musculoskeletal History: Reports: Fracture Other Musculoskeletal History: hx of fx foot Neurological History: Reports: None Other Neuro History: Erb's Palsy Psychiatric History: Reports: Anxiety, Depression Other Psychiatric History: ETOH abuse Endocrine/Metabolic History: Reports: Obesity/BMI 30+ Hematologic History: Reports: None Immunologic History: Reports: None Oncologic (Cancer) History: Reports: None Dermatologic History: Reports: None - Infectious Disease History Infectious Disease History: Reports: None - Past Surgical History Head Surgeries/Procedures: Reports: None - SUBSTANCE USE Smoking Status *Q: Former Smoker Tobacco Use Within Last Twelve Months: No Recreational Drug Use History: No - HOME MEDS Home Medications: Home Meds Venlafaxine [Effexor] 300 mg PO DAILY 05/06/14 [History] Lisinopril 10 mg PO DAILY 03/27/17 [History] traMADol HCl [Tramadol HCl] 50 mg PO Q6H PRN #20 tablet 01/27/19 [Rx] busPIRone [Buspar] 10 mg PO BID 01/06/20 [History] Pantoprazole Sodium [Protonix] 40 mg PO BID #28 tablet. 01/07/20 [Rx] - CURRENT (IN HOUSE) MEDS Current Meds: Current Medications Discontinued Medications Fentanyl (Sublimaze) Confirm Administered Dose 100 mcg .ROUTE .STK-MED ONE Stop: 01/10/20 09:18 Lidocaine (Xylocaine-Mpf 2%) Confirm Administered Dose 5 ml .ROUTE .STK-MED ONE Stop: 01/10/20 09:20 Midazolam HCl (Versed 1 Mg/Ml) Confirm Administered Dose 2 mg .ROUTE .STK-MED ONE Stop: 01/10/20 09:17 Propofol (Diprivan 20 Ml) Confirm Administered Dose 400 mg .ROUTE .STK-MED ONE Stop: 01/10/20 09:17
[2020-01-10] MEDS ORDERED: Sodium Chloride 0.9% 2.5 ML Syringe FLUSH PRN (10:52)
[2020-01-10] MEDS ORDERED: Sodium Chloride 0.9% 10 ML Syringe FLUSH PRN (10:52)
[2020-01-10] MEDS ORDERED: Sodium Chloride 0.9% 10 ML SDV IV PRN (10:52)
[2020-01-10] MEDS ORDERED: Lactated Ringers 1,000 ML IV SCH (11:00)
[2020-01-10] MEDS ORDERED: Propofol 200 MG/20 ML SDV ONE ×2 (11:56→12:04)
--- NOTE | 2020-01-10 12:26 | PCM48HPAN ---
Post Anesthesia Note - EVALUATION WITHIN 48HRS OF ANESTHETIC Vital Signs in Normal Range: Yes Patient Participated in Evaluation: Yes Respiratory Function Stable: Yes Airway Patent: Yes Cardiovascular Function Stable: Yes Hydration Status Stable: Yes Pain Control Satisfactory: Yes Nausea and Vomiting Control Satisfactory: Yes Mental Status Recovered: Yes Vital Signs: Last Vital Signs Temp 97.9 F 01/10/20 10:15 Pulse 93 01/10/20 10:15 Resp 15 01/10/20 10:15 BP 159/103 H 01/10/20 10:15 Pulse Ox 96 01/10/20 10:15
--- NOTE | 2020-01-10 12:26 | PCM.POSTAN ---
POST ANESTHESIA ASSESSMENT - MENTAL STATUS Mental Status: Alert, Oriented - VITAL SIGNS Vital Signs: Last Vital Signs Temp 97.9 F 01/10/20 10:15 Pulse 93 01/10/20 10:15 Resp 15 01/10/20 10:15 BP 159/103 H 01/10/20 10:15 Pulse Ox 96 01/10/20 10:15 - RESPIRATORY Respiratory Status: Respiratory Rate WNL, Airway Patent, O2 Saturation Stable - CARDIOVASCULAR CV Status: Pulse Rate WNL, Blood Pressure Stable - GASTROINTESTINAL GI Status: No Symptoms - POST OP HYDRATION Hydration Status: Adequate & Stable
--- NOTE | 2020-01-10 12:27 | PCM.OPNOTE ---
- General Post-Op/Procedure Note Date of Surgery/Procedure: 01/10/20 Operative Procedure(s): Colonoscopy and EGD with biopsies Findings: Normal colon. Slight gastritis on EGD Pre Op Diagnosis: Blood in stool Post-Op Diagnosis: NOrmal colon, slight gastritis [place] [facility] [place]geon: Jerson Smiley Pathology: Biopsies of pylorus Condition: Good
[2020-01-10 14:23] VITALS: BP 148/88; PULSE 86
--- NOTE | 2020-01-10 15:26 | OR ---
SURGEON: WANG SCRUGGS MD DATE OF PROCEDURE: 01/10/2020 PREOPERATIVE DIAGNOSIS: Blood when she wiped. POSTOPERATIVE DIAGNOSES: 1. Normal colonoscopy. 2. Slight gastritis seen on esophagogastroduodenoscopy. PROCEDURES PERFORMED: 1. Colonoscopy. 2. Esophagogastroduodenoscopy with biopsies. PRIMARY SURGEON: Wang Scruggs MD ANESTHESIA: General. WITHDRAWAL TIME FOR COLONOSCOPY: 9 minutes. BOWEL PREP: Good. LIMITATIONS: None. EXTENT OF COLONOSCOPY: To the cecum. EXTENT OF EGD: To the first part of the duodenum. ESTIMATED BLOOD LOSS: Minimal. COMPLICATIONS: None. REASON FOR PROCEDURE: The patient is a pleasant 39-year-old female who early this week noted to have some streaks of blood in her stool along with some blood when she wiped. This happened with 3 bowel movements. She has not had any blood since then. We informed the patient that we could do an upper and lower endoscopy to check for potential source of this bleeding. I did go over again with the patient risks, goals, and alternatives of the procedures. The risks include, but not limited to, bleeding, perforation, missed lesions, and failure to complete the procedure. I went over that if we saw any polyps or lesions on upper endoscopy, that we will biopsy or try to remove at that time if we are able to. All the patient's questions were answered, and she wished to proceed with the procedure. OPERATION NARRATIVE: A physical examination was performed. The major risks and benefits associated with the procedures were explained to the patient in detail. The patient verbalized understanding and agreement with the same. The patient was connected to the appropriate monitoring devices and an IV was started. EKG, pulse, pulse oximetry, and blood pressure were monitored throughout the procedure. Continuos oxygen and sedation was provided by the anesthesiology team. The patient was brought back to the endo suite. A preoperative time-out was performed. The patient was placed in left lateral decubitus position. After sedation was achieved, an upper endoscope was advanced under direct visualization without difficulty through the GI tract. The mucosae of the esophagus, GE junction, stomach, pylorus, first part of duodenum were all inspected. Duodenum appeared normal. Both retrograde and antegrade views of the stomach were done. The patient had some minimal nonulcerative gastritis. Several biopsies taken of the pylorus for H. pylori. Scope was brought to the GE junction. GE junction had a good Z-line with a good squamocolumnar junction. The GE junction was approximately 38 cm from her incisor. Scope was brought back in the stomach and the stomach was de-insulated. Scope was brought back through the esophagus, the esophagus appeared normal. Scope was fully removed. Gloves and scopes were changed. Now, we proceeded with the colonoscopy. A digital rectal exam was performed. No rectal mass or polyps were felt. Now a well- lubricated Olympus colonoscope was entered in the rectum and advanced under direct visualization into the cecum. Cecum was identified with both visual and anatomic landmarks. A photograph was taken of the to the cecal cap and appendiceal orifice. Now, the scope was slowly withdrawn somewhat circular fashion while examining the color, texture, anatomy, and integrity of the mucosa from the cecum to the anal canal. The patient did have some liquid stool that was suctioned out to have a good looks at the mucosa. No polyps were seen. No diverticulosis was seen. Scope was retroflexed in the rectum. Scope was then fully removed and the procedure was terminated. ENDOSCOPIC DIAGNOSES: 1. Some slight gastritis on esophagogastroduodenoscopy. 2. Normal colonoscopy. RECOMMENDATIONS: The patient should follow up with me in the clinic over her EGD and biopsies. The patient should continue her PPIs. Followup colonoscopy should be in 10 years, sooner if she develops signs and symptoms such as change in bowel habits or recurrence of blood in her stool. NARESH RO /[id number] ARIELLE
== END 2020-01-10 13:00 | disposition home or self-care (01) ==
LOC: MW.SDS 09:50
PROVIDERS: ATTEND Surgery
DX: K29.70 Gastritis, unspecified, without bleeding (principal); K31.89 Other diseases of stomach and duodenum; I10 Essential (primary) hypertension; E66.9 Obesity, unspecified; F41.9 Anxiety disorder, unspecified; F32.9 Major depressive disorder, single episode, unspecified; K21.9 Gastro-esophageal reflux disease without esophagitis; Z87.891 Personal history of nicotine dependence; Z79.899 Other long term (current) drug therapy; Z68.39 Body mass index [BMI] 39.0-39.9, adult
CPT/HCPCS: 43239; 45378; 81025; J2001; J2250; J2704; J3010; J7120; 00813; 88305; 88312

== ENCOUNTER 2023-02-11 18:21 | Emergency (ER) | payer BC ==
[2023-02-11] MEDS ORDERED: Sodium Chloride 0.9% 10 ML Syringe FLUSH PRN (18:34)
[2023-02-11] MEDS ORDERED: Sodium Chloride 0.9% 2.5 ML Syringe FLUSH PRN (18:34)
[2023-02-11] MEDS ORDERED: Sodium Chloride 0.9% 1,000 ML IV STA (18:34)
[2023-02-11] MEDS ORDERED: Ondansetron 4 MG/2 ML SDV IVPUSH STA (18:34)
[2023-02-11] MEDS ORDERED: Ketorolac 30 MG/ML SDV IVPUSH STA (18:34)
[2023-02-11 18:46] LABS: APPEARANCE,URINE CLEAR; BILIRUBIN,URINE NEGATIVE (NEGATIVE); COLOR,URINE YELLOW; GLUCOSE,URINE NEGATIVE (NEGATIVE); KETONES,URINE NEGATIVE (NEGATIVE); LEUKOCYTE ESTERASE,URINE NEGATIVE (NEGATIVE); NITRITE,URINE NEGATIVE (NEGATIVE); OCCULT BLOOD,URINE MODERATE (NEGATIVE); PROTEIN,URINE NEGATIVE (NEGATIVE); UROBILINOGEN,URINE 0.2 EU/dL (<2.0)
[2023-02-11 18:51] LABS: BACTERIA,URINE RARE (NEGATIVE); EPITHELIAL CELLS,URINE OCCASIONAL (NONE-FEW); WBC,URINE 0-2 (0-5/HPF)
[2023-02-11 19:11] LABS: BASOPHILS PERCENT AUTO 0.3 % (0.0-1.5); EOSINOPHILS ABSOLUTE AUTO 0.2 K/uL (0.0-0.7); EOSINOPHILS PERCENT AUTO 1.9 % (0.0-7.0); HEMATOCRIT 36.8 % (36.0-46.0); HEMOGLOBIN 11.9 g/dL (12.0-16.0); LYMPHOCYTES ABSOLUTE AUTO 3.1 K/uL (0.6-2.4); LYMPHOCYTES PERCENT AUTO 31.2 % (16.0-40.0); MEAN CORPUSCULAR HEMOGLOBIN 24.6 pg (27.0-32.0); MEAN CORPUSCULAR HGB CONC 32.3 g/dL (31.0-37.0); MEAN CORPUSCULAR VOLUME 76.2 fL (80.0-98.0); MONOCYTES ABSOLUTE AUTO 0.6 K/uL (0.0-0.8); MONOCYTES PERCENT AUTO 5.6 % (0.0-15.0); NRBC ABSOLUTE 0 K/uL; PLATELET COUNT,PLT 326 K/uL (150-400); RED BLOOD CELL COUNT 4.83 M/uL (4.30-5.90); WHITE BLOOD CELL COUNT,WBC 9.81 K/uL (4.0-11.0)
[2023-02-11 19:33] LABS: A/G RATIO 0.8 (0.9-1.6); ALBUMIN 3.4 g/dL (3.4-5.0); BILIRUBIN TOTAL 0.2 mg/dL (0.2-1.0); CALCIUM 8.1 mg/dL (8.5-10.1); CARBON DIOXIDE,CO2 25.5 mmol/L (21.0-32.0); CREATININE 0.8 mg/dL (0.6-1.0); EST CRCL DRUG DOSING (CG) 84.88 mL/min; POTASSIUM,K 3.2 mmol/L (3.5-5.1); PROTEIN TOTAL,TP 7.5 g/dL (6.4-8.2)
[2023-02-11] MEDS ORDERED: Iopamidol 755 MG/ML 500 ML Multipack Bottle IVPUSH ONE (19:42)
[2023-02-11 21:32] VITALS: BP 146/70; PULSE 82
== END 2023-02-11 21:31 | disposition home or self-care (01) ==
LOC: MW.ED 18:21
DX: K82.1 Hydrops of gallbladder (principal); I10 Essential (primary) hypertension; E66.9 Obesity, unspecified; Z68.41 Body mass index [BMI] 40.0-44.9, adult; Z79.899 Other long term (current) drug therapy
CPT/HCPCS: 36415; 74177; 80053; 81001; 81025; 83690; 85025; 96361; 96374; 96375; 99284; J1885; J2405; J3490; J7030; Q9967